=== PATIENT | male | born 1995 | race Caucasian/White ===

== ENCOUNTER 2020-08-14 15:43 | Inpatient (IN) | payer MEDICAID ==
[~2020-08-14] VITALS: Ht 182.9 cm; Wt 169.7 kg
[2020-08-14] MEDS ORDERED: HYDROmorphone 1 MG/ML, 1ML INJ IV ONE ×2 (17:30→18:30)
[2020-08-14] MEDS ORDERED: SODIUM CHLORIDE FLUSH 10ML SYR IVF ONE (17:30)
[2020-08-14] MEDS ORDERED: HYDROmorphone 1 MG/ML, 1ML INJ ONE ×2 (17:48→18:31)
--- NOTE | 2020-08-14 18:26 | NUR ---
task rn:mri called and stated"pt is moving a lot due to pain. pt needs pain meds for mri" edmd notified.
[2020-08-14] MEDS ORDERED: DIAZEPAM 5 MG/ML, 2ML IV ONE (18:30)
[2020-08-14] MEDS ORDERED: DIAZEPAM 5 MG/ML, 2ML ONE (18:31)
--- NOTE | 2020-08-14 18:41 | NUR ---
pt medicated per emar for pain in mri. pt tolerated well.
--- NOTE | 2020-08-14 18:56 | NUR ---
PT UNABLE TO TOLERATE MRI. DR. AMAYA AWARE.
[2020-08-14] MEDS ORDERED: METF500T17 PO (20:37)
[2020-08-14] MEDS ORDERED: ONDANSETRON ODT 4 MG PO PRN (21:00)
[2020-08-14] MEDS: SODIUM CHLORIDE 0.9% 1,000 ML IV SCH (21:00)
[2020-08-14] MEDS ORDERED: ONDANSETRON 2MG/ML, 2ML IVPush PRN (21:00)
[2020-08-14] MEDS ORDERED: PROMETHAZINE 25 MG/ML, 1ML IM PRN (21:00)
[2020-08-14] MEDS ORDERED: hydrALAzine 20 MG/ML, 1ML IVPush PRN (21:00)
[2020-08-14 21:11] VITALS: BP 123/76
[2020-08-14] MEDS ORDERED: MEDROL 4MG DOSEPAK PO SCH (21:30)
[2020-08-14] MEDS: GABAPENTIN 100 MG CAPSULE PO SCH (22:15)
[2020-08-14] MEDS: ENOXAPARIN 30 MG/0.3 ML SQ SCH (22:15)
[2020-08-14] MEDS: OXYcodone IR 5MG TABLET PO PRN (22:16)
[2020-08-14] MEDS: NICOTINE 21 MG/24 HR PATCH.TD24 TD SCH (23:14)
[2020-08-15 00:57] VITALS: BP 133/77
[2020-08-15] MEDS: OXYcodone IR 5MG TABLET PO PRN ×4 (04:38→23:40)
[2020-08-15 05:12] LABS: BASOPHILS % (AUTO) 0 % (0-1); EOSINOPHILS % (AUTO) 0 % (1-7); LYMPHOCYTES % (AUTO) 14 % (22-44); MEAN PLATELET VOLUME 7.8 fL (7.4-10.4); MONOCYTES % (AUTO) 5 % (2-9); NEUTROPHILS % (AUTO) 81 % (42-75); PLATELET COUNT 262 x10^3/uL (130-400); RED BLOOD COUNT 5.17 x10^6/uL (4.38-5.82)
[2020-08-15 05:15] LABS: MD NO
[2020-08-15 05:35] LABS: CHLORIDE 105 mmol/L (98-107)
[2020-08-15 05:47] LABS: ALANINE AMINOTRANSFERASE 57 U/L (12-78); ALBUMIN 3.8 g/dL (3.4-5.0); ALKALINE PHOSPHATASE 80 U/L (45-117); ANION GAP 9 mmol/L (5-15); BILIRUBIN,TOTAL 0.6 mg/dL (0.2-1.0); CALCIUM 8.8 mg/dL (8.5-10.1); CHOL/HDL RATIO 5.2; CHOLESTEROL, TOTAL 145 mg/dL (140-239); CREATININE 0.65 mg/dL (0.7-1.3); HDL CHOL % 19 % (26-37); HDL CHOLESTEROL (DIRECT) 28 mg/dL (40-60); LDL CHOLESTEROL,CALCULATED 61 mg/dL (54-169); LDL/HDL RATIO 2.2 (0.5-3.0); TOTAL PROTEIN 7.6 g/dL (6.4-8.2); TRIGLYCERIDES 281 mg/dL (50-200); VLDL CHOLESTEROL 56 mg/dL (0-25)
[2020-08-15 07:30] VITALS: BP 140/86
[2020-08-15] MEDS: GABAPENTIN 100 MG CAPSULE PO SCH ×3 (07:51→20:05)
[2020-08-15] MEDS: SODIUM CHLORIDE 0.9% 1,000 ML IV SCH (07:52)
[2020-08-15] MEDS: ENOXAPARIN 30 MG/0.3 ML SQ SCH (07:52)
[2020-08-15] MEDS: METHOCARBAMOL 500 MG TABLET PO PRN (07:59)
[2020-08-15] MEDS: INSULIN LISPRO 100 UNITS/ML, PEN SQ-INSULIN SCH ×4 (08:00→20:06)
[2020-08-15] MEDS: SENNA/DOCUSATE TABLET PO SCH (08:45)
[2020-08-15] MEDS: ACETAMINOPHEN 325 MG TABLET PO PRN (11:41)
[2020-08-15 12:36] VITALS: BP 141/89
[2020-08-15] MEDS ORDERED: ONDANSETRON 2MG/ML, 2ML ONE (13:10)
[2020-08-15] MEDS ORDERED: PROPOFOL 10 MG/ML, 20ML ONE (13:10)
[2020-08-15] MEDS ORDERED: SUCCINYLCHOLINE 20 MG/ML, 10ML ONE (13:10)
[2020-08-15] MEDS ORDERED: FENTANYL PF 250 MCG/5ML ONE ×2 (13:25→15:27)
[2020-08-15] MEDS ORDERED: GADOTERATE 7.5 MMOL/15ML SYR ONE (15:34)
[2020-08-15] MEDS ORDERED: OXYcodone 5 MG/5 ML ORAL.SOL UDC PO PRN (17:00)
[2020-08-15] MEDS ORDERED: MEPERIDINE/PF 25MG/0.5ML IVPush PRN (17:00)
[2020-08-15] MEDS ORDERED: LABETALOL 5MG/ML, 20ML IV PRN (17:00)
[2020-08-15] MEDS ORDERED: FENTANYL PF 100 MCG/2ML IV PRN (17:00)
[2020-08-15] MEDS ORDERED: KETOROLAC 30 MG/1 ML IV PRN (17:00)
[2020-08-15] MEDS ORDERED: ACETAMINOPHEN 325 MG TABLET PO PRN (17:00)
[2020-08-15] MEDS ORDERED: HYDROmorphone 2 MG/ML, 1ML IVPush PRN (17:00)
[2020-08-15] MEDS ORDERED: DIAZEPAM 5 MG/ML, 2ML IVPush PRN (17:00)
[2020-08-15] MEDS ORDERED: PROMETHAZINE 25 MG/ML, 1ML IV PRN (17:00)
[2020-08-15] MEDS ORDERED: hydrALAzine 20 MG/ML, 1ML IV PRN (17:00)
[2020-08-15] MEDS ORDERED: ALBUTEROL SULFATE 2.5 MG/3 ML NPPB PRN (17:00)
[2020-08-15 17:35] VITALS: BP 124/74
[2020-08-15 19:04] VITALS: BP 143/90
[2020-08-15] MEDS: NICOTINE 21 MG/24 HR PATCH.TD24 TD SCH (23:39)
[2020-08-16 00:54] VITALS: BP 143/92
[2020-08-16 05:49] LABS: BASOPHILS % (AUTO) 1 % (0-1); EOSINOPHILS % (AUTO) 0 % (1-7); LYMPHOCYTES % (AUTO) 17 % (22-44); MEAN CORPUSCULAR HEMOGLOBIN 30.7 pg (27.5-34.5); MEAN CORPUSCULAR HGB CONC 33.7 g/dL (33.2-36.2); MONOCYTES % (AUTO) 6 % (2-9); NEUTROPHILS % (AUTO) 77 % (42-75); PLATELET COUNT 279 x10^3/uL (130-400); RED BLOOD COUNT 5.08 x10^6/uL (4.38-5.82); RED CELL DISTRIBUTION WIDTH 12.9 % (9.4-14.8)
[2020-08-16 05:55] LABS: ALANINE AMINOTRANSFERASE 71 U/L (12-78); ALBUMIN 3.5 g/dL (3.4-5.0); ANION GAP 5 mmol/L (5-15); CALCIUM 8.7 mg/dL (8.5-10.1); CHLORIDE 105 mmol/L (98-107); CREATININE 0.78 mg/dL (0.7-1.3)
[2020-08-16 05:57] LABS: ALKALINE PHOSPHATASE 78 U/L (45-117); BILIRUBIN,TOTAL 0.6 mg/dL (0.2-1.0); TOTAL PROTEIN 7.2 g/dL (6.4-8.2)
[2020-08-16 06:17] VITALS: BP 109/74
[2020-08-16 06:26] LABS: MD SCAN
[2020-08-16] MEDS: INSULIN LISPRO 100 UNITS/ML, PEN SQ-INSULIN SCH ×4 (07:00→22:30)
[2020-08-16] MEDS ORDERED: CHLORHEXIDINE 15 ML UDC ONE (07:01)
[2020-08-16] MEDS ORDERED: THROMBIN 5,000 UNIT VIAL TP ONE ×2 (07:19→09:42)
[2020-08-16] MEDS ORDERED: BACITRACIN OINT 500U/GM, 15 GM ONE (07:19)
[2020-08-16] MEDS ORDERED: methylPREDNISolone *ACETATE* 40 MG/ML ONE (07:19)
[2020-08-16] MEDS ORDERED: EPINEPHRINE 1 MG/ML, 1ML ONE (07:19)
[2020-08-16] MEDS ORDERED: BUPIVACAINE/PF 0.5% ONE (07:19)
[2020-08-16] MEDS ORDERED: BACITRACIN 50,000 UNIT ONE ×2 (07:20→10:16)
[2020-08-16] MEDS: SENNA/DOCUSATE TABLET PO SCH (07:26)
[2020-08-16] MEDS: GABAPENTIN 100 MG CAPSULE PO SCH ×3 (07:26→22:30)
[2020-08-16] MEDS ORDERED: CHLORHEXIDINE 15 ML UDC PO ONE (07:30)
[2020-08-16] MEDS ORDERED: FENTANYL PF 250 MCG/5ML ONE ×3 (07:31→10:52)
[2020-08-16] MEDS ORDERED: MIDAZOLAM 1 MG/ML, 2ML ONE (07:31)
[2020-08-16] MEDS ORDERED: KETAMINE 10 MG/ML, 20ML ONE (07:37)
[2020-08-16] MEDS ORDERED: PROPOFOL 150 ML ONE ×2 (07:38→09:50)
[2020-08-16] MEDS ORDERED: INSULIN REGULAR 100 UNITS/ML, 3ML VIAL SQ-INSULIN PRN (08:30)
[2020-08-16] MEDS: CYCLOBENZAPRINE 10 MG TABLET PO SCH ×2 (08:30→16:53)
[2020-08-16] MEDS ORDERED: DIPHENHYDRAMINE 50 MG/ML, 1ML IVPush PRN (08:30)
[2020-08-16] MEDS ORDERED: MAGNESIUM HYDROXIDE 8%, 30ML UDC PO PRN (08:30)
[2020-08-16] MEDS ORDERED: PHARMACY MAY ADJ FOR RENAL FX MC PRN (08:30)
[2020-08-16] MEDS ORDERED: BUPIVACAINE/PF-EPI 0.5% 1:200K INFIL ONE (08:52)
[2020-08-16] MEDS ORDERED: BACITRACIN 50,000 UNIT IRRIG ONE ×2 (08:52→10:19)
[2020-08-16] MEDS ORDERED: HYDROmorphone 1 MG/ML, 1ML INJ ONE ×3 (09:19→13:44)
[2020-08-16] MEDS ORDERED: FENTANYL PF 100 MCG/2ML IV PRN (10:00)
[2020-08-16] MEDS ORDERED: LORazepam 2 MG/ML, 1ML IVPush PRN (10:00)
[2020-08-16] MEDS ORDERED: ACETAMINOPHEN 325 MG TABLET PO PRN (10:00)
[2020-08-16] MEDS ORDERED: hydrALAzine 20 MG/ML, 1ML IV PRN (10:00)
[2020-08-16] MEDS ORDERED: ONDANSETRON 2MG/ML, 2ML IVPush PRN (10:00)
[2020-08-16] MEDS ORDERED: HALOPERIDOL 5 MG/ML IV PRN (10:00)
[2020-08-16] MEDS ORDERED: MEPERIDINE/PF 25MG/0.5ML IVPush PRN (10:00)
[2020-08-16] MEDS ORDERED: LABETALOL 5MG/ML, 20ML IV PRN (10:00)
[2020-08-16] MEDS ORDERED: PROMETHAZINE 25 MG/ML, 1ML IVPush PRN (10:00)
[2020-08-16] MEDS ORDERED: OXYcodone 5 MG/5 ML ORAL.SOL UDC PO PRN (10:00)
[2020-08-16] MEDS ORDERED: METHOCARBAMOL 1,000 MG in DEXTROSE 5% 100 ML IV PRN (10:00)
[2020-08-16] MEDS ORDERED: PROMETHAZINE 25 MG SUPP PR PRN (10:00)
[2020-08-16] MEDS ORDERED: NEOSTIGMINE 1 MG/ML, 10ML ONE (10:51)
[2020-08-16] MEDS ORDERED: DEXAMETHASONE 4 MG/ML, 1ML ONE (10:51)
[2020-08-16] MEDS ORDERED: ROCURONIUM 10MG/ML,5ML ONE (10:51)
[2020-08-16] MEDS ORDERED: PROPOFOL 10 MG/ML, 20ML ONE (10:51)
[2020-08-16] MEDS ORDERED: SUCCINYLCHOLINE 20 MG/ML, 10ML ONE (10:51)
[2020-08-16] MEDS ORDERED: ONDANSETRON 2MG/ML, 2ML ONE (10:51)
[2020-08-16] MEDS ORDERED: CEFAZOLIN 1,000 MG ONE (10:51)
[2020-08-16] MEDS ORDERED: GLYCOPYRROLATE 0.2MG/1ML, 5ML ONE (10:51)
[2020-08-16] MEDS ORDERED: FENTANYL PF 100 MCG/2ML ONE (12:30)
[2020-08-16] MEDS ORDERED: LABETALOL 5MG/ML, 20ML ONE (13:32)
[2020-08-16] MEDS ORDERED: hydrALAzine 20 MG/ML, 1ML ONE (13:44)
[2020-08-16] MEDS ORDERED: OXYcodone 5 MG/5 ML ORAL.SOL UDC ONE (13:45)
[2020-08-16] MEDS: HYDROmorphone 1 MG/ML, 1ML INJ IVPush PRN ×2 (13:53→13:58)
[2020-08-16] MEDS: CEFAZOLIN PMX 1GM/50ML 50 ML IVPB SCH (16:53)
[2020-08-16 19:03] VITALS: BP 124/73
[2020-08-16 19:06] VITALS: BP 118/89
[2020-08-16] MEDS ORDERED: SODIUM CHLORIDE 0.9%, 500ML IVBOLUS ONE (23:30)
[2020-08-16] MEDS: NICOTINE 21 MG/24 HR PATCH.TD24 TD SCH (23:30)
[2020-08-17 00:02] VITALS: BP 122/64
[2020-08-17] MEDS: CEFAZOLIN PMX 1GM/50ML 50 ML IVPB SCH (00:47)
[2020-08-17] MEDS: CYCLOBENZAPRINE 10 MG TABLET PO SCH ×3 (00:47→16:52)
[2020-08-17 03:19] VITALS: BP 128/77
[2020-08-17] MEDS: ACETAMINOPHEN 325 MG TABLET PO PRN ×2 (03:46→21:52)
[2020-08-17] MEDS ORDERED: INSULIN LISPRO 100 UNITS/ML, PEN SQ-INSULIN ONE (04:00)
[2020-08-17 05:15] VITALS: BP 127/82
[2020-08-17 05:26] LABS: BASOPHILS % (AUTO) 1 % (0-1); EOSINOPHILS % (AUTO) 0 % (1-7); LYMPHOCYTES % (AUTO) 20 % (22-44); MEAN CORPUSCULAR HEMOGLOBIN 30.6 pg (27.5-34.5); MEAN CORPUSCULAR HGB CONC 33.9 g/dL (33.2-36.2); MEAN PLATELET VOLUME 7.7 fL (7.4-10.4); MONOCYTES % (AUTO) 10 % (2-9); NEUTROPHILS % (AUTO) 69 % (42-75); PLATELET COUNT 233 x10^3/uL (130-400); RED BLOOD COUNT 4.26 x10^6/uL (4.38-5.82)
[2020-08-17 05:41] LABS: MD NO
[2020-08-17 05:52] LABS: CALCIUM 8.2 mg/dL (8.5-10.1); CHLORIDE 103 mmol/L (98-107)
[2020-08-17 05:56] LABS: ANION GAP 6 mmol/L (5-15); CREATININE 0.74 mg/dL (0.7-1.3)
[2020-08-17 07:26] VITALS: BP 127/83
[2020-08-17] MEDS: GABAPENTIN 100 MG CAPSULE PO SCH ×3 (08:56→21:52)
[2020-08-17] MEDS: SENNA/DOCUSATE TABLET PO SCH (08:56)
[2020-08-17] MEDS: INSULIN LISPRO 100 UNITS/ML, PEN SQ-INSULIN SCH ×4 (08:57→21:55)
[2020-08-17 12:36] VITALS: BP 124/77
[2020-08-17 19:58] VITALS: BP 146/77
[2020-08-18] MEDS: NICOTINE 21 MG/24 HR PATCH.TD24 TD SCH ×2 (00:04→23:31)
[2020-08-18] MEDS: CYCLOBENZAPRINE 10 MG TABLET PO SCH ×4 (00:04→23:31)
[2020-08-18 01:11] VITALS: BP 129/77
[2020-08-18] MEDS: ACETAMINOPHEN 325 MG TABLET PO PRN (02:48)
[2020-08-18 06:00] LABS: CHLORIDE 100 mmol/L (98-107)
[2020-08-18 06:02] LABS: BASOPHILS % (AUTO) 0 % (0-1); EOSINOPHILS % (AUTO) 0 % (1-7); LYMPHOCYTES % (AUTO) 11 % (22-44); MEAN CORPUSCULAR HEMOGLOBIN 30.2 pg (27.5-34.5); MEAN CORPUSCULAR HGB CONC 33.8 g/dL (33.2-36.2); MEAN PLATELET VOLUME 7.8 fL (7.4-10.4); MONOCYTES % (AUTO) 12 % (2-9); NEUTROPHILS % (AUTO) 76 % (42-75); PLATELET COUNT 220 x10^3/uL (130-400); RED BLOOD COUNT 4.33 x10^6/uL (4.38-5.82); RED CELL DISTRIBUTION WIDTH 12.9 % (9.4-14.8)
[2020-08-18 06:08] LABS: ALANINE AMINOTRANSFERASE 72 U/L (12-78); ALBUMIN 2.9 g/dL (3.4-5.0); ALKALINE PHOSPHATASE 61 U/L (45-117); ANION GAP 5 mmol/L (5-15); BILIRUBIN,TOTAL 1.2 mg/dL (0.2-1.0); CALCIUM 8.5 mg/dL (8.5-10.1); CREATININE 0.59 mg/dL (0.7-1.3); TOTAL PROTEIN 6.7 g/dL (6.4-8.2)
[2020-08-18 07:09] LABS: MD SCAN
[2020-08-18] MEDS: INSULIN LISPRO 100 UNITS/ML, PEN SQ-INSULIN SCH ×4 (08:03→20:57)
[2020-08-18] MEDS: CEFAZOLIN 2,000 MG in SODIUM CHLORIDE 0.9% 50 ML IV SCH ×3 (08:04→23:30)
[2020-08-18] MEDS: SENNA/DOCUSATE TABLET PO SCH (08:05)
[2020-08-18] MEDS: GABAPENTIN 100 MG CAPSULE PO SCH ×3 (08:05→20:56)
[2020-08-18] MEDS ORDERED: metFORMIN 500 MG TABLET PO SCH (09:00)
[2020-08-18 09:57] VITALS: BP 121/84
[2020-08-18 14:23] VITALS: BP 151/88
[2020-08-18 20:08] VITALS: BP 131/82
[2020-08-19 01:20] VITALS: BP 138/81
[2020-08-19 07:06] LABS: ANION GAP 11 mmol/L (5-15); CALCIUM 9.4 mg/dL (8.5-10.1); CHLORIDE 100 mmol/L (98-107); CREATININE 0.51 mg/dL (0.7-1.3)
[2020-08-19 07:12] LABS: BASOPHILS % (AUTO) 1 % (0-1); EOSINOPHILS % (AUTO) 1 % (1-7); LYMPHOCYTES % (AUTO) 10 % (22-44); MEAN CORPUSCULAR HEMOGLOBIN 30.4 pg (27.5-34.5); MEAN CORPUSCULAR HGB CONC 33.5 g/dL (33.2-36.2); MEAN PLATELET VOLUME 7.5 fL (7.4-10.4); MONOCYTES % (AUTO) 9 % (2-9); NEUTROPHILS % (AUTO) 80 % (42-75); PLATELET COUNT 254 x10^3/uL (130-400); RED BLOOD COUNT 4.45 x10^6/uL (4.38-5.82); RED CELL DISTRIBUTION WIDTH 12.6 % (9.4-14.8)
[2020-08-19 07:18] VITALS: BP 142/80
[2020-08-19 07:19] LABS: MD NO
[2020-08-19] MEDS: CEFAZOLIN 2,000 MG in SODIUM CHLORIDE 0.9% 50 ML IV SCH (08:13)
[2020-08-19] MEDS: CYCLOBENZAPRINE 10 MG TABLET PO SCH ×2 (08:14→17:12)
[2020-08-19] MEDS: SENNA/DOCUSATE TABLET PO SCH (08:14)
[2020-08-19] MEDS: INSULIN LISPRO 100 UNITS/ML, PEN SQ-INSULIN SCH ×4 (08:14→22:00)
[2020-08-19] MEDS: GABAPENTIN 100 MG CAPSULE PO SCH ×3 (08:15→20:45)
[2020-08-19] MEDS ORDERED: DIAZEPAM 5 MG/ML, 2ML IVPush ONE (10:00)
[2020-08-19] MEDS: MORPHINE SULFATE 4 MG/ML, 1ML IVPush PRN ×2 (11:36→13:36)
[2020-08-19] MEDS: OXYcodone IR 5MG TABLET PO PRN ×2 (13:35→19:20)
[2020-08-19 14:00] VITALS: BP 139/85
[2020-08-19 18:43] VITALS: BP 132/83
[2020-08-19] MEDS ORDERED: INSULIN GLARGINE 100 UNITS/ML, PEN SQ-INSULIN SCH (21:00)
[2020-08-20] MEDS: NICOTINE 21 MG/24 HR PATCH.TD24 TD SCH ×2 (00:26→23:37)
[2020-08-20] MEDS: CYCLOBENZAPRINE 10 MG TABLET PO SCH ×3 (00:26→17:02)
[2020-08-20] MEDS: OXYcodone IR 5MG TABLET PO PRN ×4 (00:27→19:52)
[2020-08-20 01:20] VITALS: BP 121/75
[2020-08-20 03:50] LABS: MICROSCOPIC INDICATED
[2020-08-20 05:41] LABS: BASOPHILS % (AUTO) 1 % (0-1); EOSINOPHILS % (AUTO) 2 % (1-7); LYMPHOCYTES % (AUTO) 14 % (22-44); MEAN CORPUSCULAR HEMOGLOBIN 30.6 pg (27.5-34.5); MEAN CORPUSCULAR HGB CONC 33.8 g/dL (33.2-36.2); MEAN PLATELET VOLUME 7.8 fL (7.4-10.4); MONOCYTES % (AUTO) 10 % (2-9); NEUTROPHILS % (AUTO) 74 % (42-75); PLATELET COUNT 285 x10^3/uL (130-400); RED BLOOD COUNT 4.18 x10^6/uL (4.38-5.82); RED CELL DISTRIBUTION WIDTH 12.9 % (9.4-14.8)
[2020-08-20 05:49] LABS: ANION GAP 8 mmol/L (5-15); CALCIUM 9.1 mg/dL (8.5-10.1); CHLORIDE 100 mmol/L (98-107); CREATININE 0.52 mg/dL (0.7-1.3)
[2020-08-20 05:52] LABS: MD NO
[2020-08-20 07:14] VITALS: BP 131/73
[2020-08-20] MEDS: SENNA/DOCUSATE TABLET PO SCH (08:38)
[2020-08-20] MEDS: GABAPENTIN 100 MG CAPSULE PO SCH ×3 (08:38→21:47)
[2020-08-20] MEDS: INSULIN LISPRO 100 UNITS/ML, PEN SQ-INSULIN SCH ×4 (08:38→21:51)
[2020-08-20 13:02] VITALS: BP 140/90
[2020-08-20] MEDS: METOCLOPRAMIDE 5 MG/ML, 2ML IVPush SCH ×2 (13:37→17:01)
[2020-08-20 15:28] VITALS: BP 134/81
[2020-08-20] MEDS: MORPHINE SULFATE 4 MG/ML, 1ML IVPush PRN ×2 (17:00→21:46)
[2020-08-20] MEDS: BISACODYL 10 MG SUPP PR PRN (17:02)
[2020-08-20] MEDS: POLYETHYLENE GLYCOL 17 GM PACKET PO SCH ×2 (17:02→21:47)
[2020-08-20 19:21] VITALS: BP 122/74
[2020-08-20] MEDS: SENNOSIDES 8.6 MG TABLET PO SCH (21:47)
[2020-08-20] MEDS: INSULIN GLARGINE 100 UNITS/ML, PEN SQ-INSULIN SCH (21:51)
[2020-08-21] MEDS: OXYcodone IR 5MG TABLET PO PRN ×5 (00:12→19:33)
[2020-08-21] MEDS: CYCLOBENZAPRINE 10 MG TABLET PO SCH ×3 (01:24→15:15)
[2020-08-21] MEDS: METOCLOPRAMIDE 5 MG/ML, 2ML IVPush SCH ×4 (01:24→22:00)
[2020-08-21 02:05] VITALS: BP 118/83
[2020-08-21 06:10] LABS: BASOPHILS % (AUTO) 1 % (0-1); EOSINOPHILS % (AUTO) 2 % (1-7); LYMPHOCYTES % (AUTO) 18 % (22-44); MEAN CORPUSCULAR HEMOGLOBIN 30.4 pg (27.5-34.5); MEAN CORPUSCULAR HGB CONC 34.1 g/dL (33.2-36.2); MEAN PLATELET VOLUME 7.5 fL (7.4-10.4); MONOCYTES % (AUTO) 10 % (2-9); NEUTROPHILS % (AUTO) 69 % (42-75); PLATELET COUNT 308 x10^3/uL (130-400); RED BLOOD COUNT 4.12 x10^6/uL (4.38-5.82); RED CELL DISTRIBUTION WIDTH 12.7 % (9.4-14.8)
[2020-08-21 06:19] LABS: ANION GAP 8 mmol/L (5-15); CALCIUM 8.7 mg/dL (8.5-10.1); CHLORIDE 95 mmol/L (98-107); MD NO
[2020-08-21 06:20] LABS: CREATININE 0.57 mg/dL (0.7-1.3)
[2020-08-21] MEDS: POLYETHYLENE GLYCOL 17 GM PACKET PO SCH (07:30)
[2020-08-21] MEDS: INSULIN LISPRO 100 UNITS/ML, PEN SQ-INSULIN SCH ×4 (07:31→22:26)
[2020-08-21] MEDS: INSULIN GLARGINE 100 UNITS/ML, PEN SQ-INSULIN SCH ×2 (07:31→22:25)
[2020-08-21] MEDS: SENNOSIDES 8.6 MG TABLET PO SCH ×2 (07:31→22:01)
[2020-08-21] MEDS: GABAPENTIN 100 MG CAPSULE PO SCH ×3 (07:32→22:01)
[2020-08-21 07:55] VITALS: BP 123/77
[2020-08-21] MEDS ORDERED: DIAZEPAM 5 MG/ML, 2ML IV ONE (13:00)
[2020-08-21 13:50] VITALS: BP 140/90
[2020-08-21] MEDS: metFORMIN 850 MG TABLET PO SCH (16:44)
[2020-08-21] MEDS: MORPHINE SULFATE 4 MG/ML, 1ML IVPush PRN ×3 (17:03→18:39)
[2020-08-21] MEDS ORDERED: DIAZEPAM 5 MG/ML, 2ML IV PRN (18:00)
[2020-08-21 19:24] VITALS: BP 106/75
[2020-08-22] MEDS: CYCLOBENZAPRINE 10 MG TABLET PO SCH ×3 (00:48→15:40)
[2020-08-22] MEDS: NICOTINE 21 MG/24 HR PATCH.TD24 TD SCH ×2 (00:48→22:36)
[2020-08-22] MEDS: OXYcodone IR 5MG TABLET PO PRN ×5 (00:49→23:29)
[2020-08-22 01:00] VITALS: BP 119/70
[2020-08-22] MEDS: METOCLOPRAMIDE 5 MG/ML, 2ML IVPush SCH ×5 (03:42→20:43)
[2020-08-22 05:05] LABS: BASOPHILS % (AUTO) 1 % (0-1); EOSINOPHILS % (AUTO) 2 % (1-7); LYMPHOCYTES % (AUTO) 22 % (22-44); MEAN CORPUSCULAR HEMOGLOBIN 30.4 pg (27.5-34.5); MEAN CORPUSCULAR HGB CONC 34.4 g/dL (33.2-36.2); MEAN PLATELET VOLUME 7.1 fL (7.4-10.4); MONOCYTES % (AUTO) 9 % (2-9); NEUTROPHILS % (AUTO) 66 % (42-75); PLATELET COUNT 307 x10^3/uL (130-400); RED BLOOD COUNT 4.24 x10^6/uL (4.38-5.82); RED CELL DISTRIBUTION WIDTH 12.9 % (9.4-14.8)
[2020-08-22 05:08] LABS: MD NO
[2020-08-22] MEDS: INSULIN LISPRO 100 UNITS/ML, PEN SQ-INSULIN SCH ×4 (07:48→20:43)
[2020-08-22] MEDS: SENNOSIDES 8.6 MG TABLET PO SCH ×2 (07:49→20:43)
[2020-08-22] MEDS: metFORMIN 850 MG TABLET PO SCH ×2 (07:49→15:37)
[2020-08-22] MEDS: INSULIN GLARGINE 100 UNITS/ML, PEN SQ-INSULIN SCH ×2 (07:49→20:44)
[2020-08-22] MEDS: GABAPENTIN 100 MG CAPSULE PO SCH ×3 (07:49→20:43)
[2020-08-22 08:01] VITALS: BP 124/78
[2020-08-22] MEDS: PIPERACILLIN/TAZO/PMX 4.5GM 100 ML IV SCH ×3 (10:51→22:36)
[2020-08-22 13:55] VITALS: BP 139/79
[2020-08-22] MEDS: METHOCARBAMOL 500 MG TABLET PO PRN ×2 (15:41→23:29)
[2020-08-22] MEDS: POLYETHYLENE GLYCOL 17 GM PACKET PO PRN (15:41)
[2020-08-22 19:24] VITALS: BP_SYST 120
[2020-08-22] MEDS: ACETAMINOPHEN 325 MG TABLET PO PRN (19:32)
[2020-08-22] MEDS: LORazepam 1MG TABLET PO PRN (20:43)
[2020-08-23 00:02] VITALS: BP 109/79
[2020-08-23] MEDS: CYCLOBENZAPRINE 10 MG TABLET PO SCH ×3 (03:18→20:22)
[2020-08-23] MEDS: METOCLOPRAMIDE 5 MG/ML, 2ML IVPush SCH ×4 (03:18→20:22)
[2020-08-23] MEDS: OXYcodone IR 5MG TABLET PO PRN ×5 (03:19→20:21)
[2020-08-23] MEDS: PIPERACILLIN/TAZO/PMX 4.5GM 100 ML IV SCH ×4 (04:23→22:39)
[2020-08-23 05:24] LABS: BASOPHILS % (AUTO) 1 % (0-1); EOSINOPHILS % (AUTO) 2 % (1-7); LYMPHOCYTES % (AUTO) 22 % (22-44); MEAN CORPUSCULAR HEMOGLOBIN 30.5 pg (27.5-34.5); MEAN CORPUSCULAR HGB CONC 34.3 g/dL (33.2-36.2); MEAN PLATELET VOLUME 7.7 fL (7.4-10.4); MONOCYTES % (AUTO) 11 % (2-9); NEUTROPHILS % (AUTO) 64 % (42-75); PLATELET COUNT 320 x10^3/uL (130-400); RED BLOOD COUNT 4.22 x10^6/uL (4.38-5.82); RED CELL DISTRIBUTION WIDTH 12.8 % (9.4-14.8)
[2020-08-23 05:26] LABS: MD NO
[2020-08-23 06:15] VITALS: BP 104/73
[2020-08-23] MEDS: metFORMIN 850 MG TABLET PO SCH ×3 (07:35→18:34)
[2020-08-23] MEDS: INSULIN LISPRO 100 UNITS/ML, PEN SQ-INSULIN SCH ×4 (07:36→20:44)
[2020-08-23] MEDS: SENNOSIDES 8.6 MG TABLET PO SCH ×2 (09:22→20:21)
[2020-08-23] MEDS: GABAPENTIN 100 MG CAPSULE PO SCH ×3 (09:22→20:22)
[2020-08-23] MEDS: INSULIN GLARGINE 100 UNITS/ML, PEN SQ-INSULIN SCH ×2 (09:23→20:44)
[2020-08-23 14:10] VITALS: BP 129/84
[2020-08-23 19:10] VITALS: BP 100/68
[2020-08-23] MEDS: NICOTINE 21 MG/24 HR PATCH.TD24 TD SCH (22:39)
[2020-08-24] MEDS: OXYcodone IR 5MG TABLET PO PRN ×5 (00:05→21:44)
[2020-08-24 01:07] VITALS: BP 126/76
[2020-08-24] MEDS: METOCLOPRAMIDE 5 MG/ML, 2ML IVPush SCH ×4 (03:05→21:00)
[2020-08-24] MEDS: CYCLOBENZAPRINE 10 MG TABLET PO SCH ×3 (03:47→21:57)
[2020-08-24] MEDS: PIPERACILLIN/TAZO/PMX 4.5GM 100 ML IV SCH ×4 (05:03→22:15)
[2020-08-24 06:01] LABS: BASOPHILS % (AUTO) 1 % (0-1); EOSINOPHILS % (AUTO) 2 % (1-7); LYMPHOCYTES % (AUTO) 27 % (22-44); MEAN CORPUSCULAR HEMOGLOBIN 30.3 pg (27.5-34.5); MEAN CORPUSCULAR HGB CONC 33.6 g/dL (33.2-36.2); MEAN PLATELET VOLUME 7.5 fL (7.4-10.4); MONOCYTES % (AUTO) 9 % (2-9); NEUTROPHILS % (AUTO) 61 % (42-75); PLATELET COUNT 341 x10^3/uL (130-400); RED BLOOD COUNT 4.14 x10^6/uL (4.38-5.82); RED CELL DISTRIBUTION WIDTH 12.6 % (9.4-14.8)
[2020-08-24 06:05] LABS: MD NO
[2020-08-24 06:09] LABS: ALANINE AMINOTRANSFERASE 41 U/L (12-78); ALBUMIN 2.2 g/dL (3.4-5.0); ANION GAP 4 mmol/L (5-15); CALCIUM 8.4 mg/dL (8.5-10.1); CHLORIDE 102 mmol/L (98-107); CREATININE 0.46 mg/dL (0.7-1.3)
[2020-08-24 06:10] LABS: ALKALINE PHOSPHATASE 69 U/L (45-117); BILIRUBIN,TOTAL 0.4 mg/dL (0.2-1.0); TOTAL PROTEIN 6.3 g/dL (6.4-8.2)
[2020-08-24 07:44] VITALS: BP 142/76
[2020-08-24] MEDS: SENNOSIDES 8.6 MG TABLET PO SCH ×2 (08:35→21:54)
[2020-08-24] MEDS: metFORMIN 850 MG TABLET PO SCH ×3 (08:35→16:46)
[2020-08-24] MEDS: GABAPENTIN 100 MG CAPSULE PO SCH ×3 (08:35→21:43)
[2020-08-24] MEDS: POLYETHYLENE GLYCOL 17 GM PACKET PO PRN (08:36)
[2020-08-24] MEDS: INSULIN GLARGINE 100 UNITS/ML, PEN SQ-INSULIN SCH ×2 (08:37→23:20)
[2020-08-24] MEDS: INSULIN LISPRO 100 UNITS/ML, PEN SQ-INSULIN SCH ×4 (08:39→23:20)
[2020-08-24 19:14] VITALS: BP 121/78
[2020-08-24] MEDS: NICOTINE 21 MG/24 HR PATCH.TD24 TD SCH (21:58)
[2020-08-25 00:29] VITALS: BP 119/76
[2020-08-25] MEDS: OXYcodone IR 5MG TABLET PO PRN ×5 (02:42→21:49)
[2020-08-25] MEDS: METOCLOPRAMIDE 5 MG/ML, 2ML IVPush SCH ×4 (03:00→21:50)
[2020-08-25] MEDS: METHOCARBAMOL 500 MG TABLET PO PRN ×2 (05:09→17:02)
[2020-08-25] MEDS: PIPERACILLIN/TAZO/PMX 4.5GM 100 ML IV SCH (05:09)
[2020-08-25 06:45] LABS: BASOPHILS % (AUTO) 1 % (0-1); EOSINOPHILS % (AUTO) 2 % (1-7); LYMPHOCYTES % (AUTO) 31 % (22-44); MEAN CORPUSCULAR HEMOGLOBIN 30.3 pg (27.5-34.5); MEAN CORPUSCULAR HGB CONC 33.5 g/dL (33.2-36.2); MEAN PLATELET VOLUME 7.4 fL (7.4-10.4); MONOCYTES % (AUTO) 8 % (2-9); NEUTROPHILS % (AUTO) 58 % (42-75); PLATELET COUNT 348 x10^3/uL (130-400); RED BLOOD COUNT 4.04 x10^6/uL (4.38-5.82); RED CELL DISTRIBUTION WIDTH 12.9 % (9.4-14.8)
[2020-08-25 06:46] LABS: MD NO
[2020-08-25] MEDS: CYCLOBENZAPRINE 10 MG TABLET PO SCH ×3 (06:49→21:48)
[2020-08-25 06:56] LABS: ANION GAP 5 mmol/L (5-15); CALCIUM 8.7 mg/dL (8.5-10.1); CHLORIDE 104 mmol/L (98-107); CREATININE 0.59 mg/dL (0.7-1.3)
[2020-08-25] MEDS: SENNOSIDES 8.6 MG TABLET PO SCH ×2 (07:54→21:49)
[2020-08-25 07:55] VITALS: BP 137/79
[2020-08-25] MEDS: GABAPENTIN 100 MG CAPSULE PO SCH ×3 (08:12→21:48)
[2020-08-25] MEDS: metFORMIN 850 MG TABLET PO SCH ×3 (08:12→16:58)
[2020-08-25] MEDS: INSULIN GLARGINE 100 UNITS/ML, PEN SQ-INSULIN SCH ×2 (08:13→22:13)
[2020-08-25] MEDS: INSULIN LISPRO 100 UNITS/ML, PEN SQ-INSULIN SCH ×4 (08:17→22:13)
[2020-08-25] MEDS: CEPHALEXIN 500 MG CAPSULE PO SCH ×2 (10:10→17:37)
[2020-08-25 14:55] VITALS: BP 132/74
[2020-08-25 19:07] VITALS: BP 113/74
[2020-08-25] MEDS: NICOTINE 21 MG/24 HR PATCH.TD24 TD SCH (21:49)
[2020-08-26] MEDS: CEPHALEXIN 500 MG CAPSULE PO SCH ×3 (01:56→16:55)
[2020-08-26 02:05] VITALS: BP 118/76
[2020-08-26] MEDS: METOCLOPRAMIDE 5 MG/ML, 2ML IVPush SCH (02:58)
[2020-08-26] MEDS: OXYcodone IR 5MG TABLET PO PRN ×5 (02:59→23:20)
[2020-08-26] MEDS: CYCLOBENZAPRINE 10 MG TABLET PO SCH ×3 (06:42→23:19)
[2020-08-26] MEDS: INSULIN LISPRO 100 UNITS/ML, PEN SQ-INSULIN SCH ×4 (07:00→21:00)
[2020-08-26 07:35] VITALS: BP 137/80
[2020-08-26] MEDS: SENNOSIDES 8.6 MG TABLET PO SCH ×2 (08:24→23:20)
[2020-08-26] MEDS: GABAPENTIN 100 MG CAPSULE PO SCH ×3 (08:24→23:19)
[2020-08-26] MEDS: metFORMIN 850 MG TABLET PO SCH ×3 (08:24→16:55)
[2020-08-26] MEDS: INSULIN GLARGINE 100 UNITS/ML, PEN SQ-INSULIN SCH (08:26)
[2020-08-26] MEDS ORDERED: METOCLOPRAMIDE 5 MG/ML, 2ML IVPush PRN (08:30)
[2020-08-26 15:49] VITALS: BP 139/79
[2020-08-26 18:02] VITALS: BP 129/65
[2020-08-26] MEDS: NICOTINE 21 MG/24 HR PATCH.TD24 TD SCH (23:20)
[2020-08-26] MEDS: ACETAMINOPHEN 325 MG TABLET PO PRN (23:20)
[2020-08-27] MEDS: INSULIN GLARGINE 100 UNITS/ML, PEN SQ-INSULIN SCH ×3 (00:09→21:51)
[2020-08-27] MEDS: CEPHALEXIN 500 MG CAPSULE PO SCH ×3 (00:40→17:01)
[2020-08-27 00:42] VITALS: BP 121/76
[2020-08-27 06:06] LABS: BASOPHILS % (AUTO) 1 % (0-1); EOSINOPHILS % (AUTO) 2 % (1-7); LYMPHOCYTES % (AUTO) 36 % (22-44); MEAN CORPUSCULAR HEMOGLOBIN 30.3 pg (27.5-34.5); MEAN PLATELET VOLUME 7.3 fL (7.4-10.4); MONOCYTES % (AUTO) 8 % (2-9); NEUTROPHILS % (AUTO) 53 % (42-75); PLATELET COUNT 411 x10^3/uL (130-400); RED BLOOD COUNT 4.31 x10^6/uL (4.38-5.82); RED CELL DISTRIBUTION WIDTH 12.8 % (9.4-14.8)
[2020-08-27 06:07] LABS: CHLORIDE 103 mmol/L (98-107)
[2020-08-27 06:11] LABS: ANION GAP 5 mmol/L (5-15); CALCIUM 9.7 mg/dL (8.5-10.1); CREATININE 0.48 mg/dL (0.7-1.3)
[2020-08-27 06:18] LABS: MD NO
[2020-08-27] MEDS: CYCLOBENZAPRINE 10 MG TABLET PO SCH ×2 (06:29→15:23)
[2020-08-27] MEDS: OXYcodone IR 5MG TABLET PO PRN ×4 (06:39→21:50)
[2020-08-27 06:50] VITALS: BP 138/83
[2020-08-27] MEDS: SENNOSIDES 8.6 MG TABLET PO SCH ×2 (08:54→21:50)
[2020-08-27] MEDS: metFORMIN 850 MG TABLET PO SCH ×3 (08:54→17:00)
[2020-08-27] MEDS: GABAPENTIN 100 MG CAPSULE PO SCH ×3 (08:54→21:50)
[2020-08-27] MEDS: INSULIN LISPRO 100 UNITS/ML, PEN SQ-INSULIN SCH ×4 (08:55→21:00)
[2020-08-27 12:02] VITALS: BP 124/89
[2020-08-27 20:34] VITALS: BP 111/72
[2020-08-28] MEDS: CYCLOBENZAPRINE 10 MG TABLET PO SCH ×3 (00:32→16:29)
[2020-08-28] MEDS: CEPHALEXIN 500 MG CAPSULE PO SCH ×3 (00:32→16:28)
[2020-08-28] MEDS: NICOTINE 21 MG/24 HR PATCH.TD24 TD SCH (00:32)
[2020-08-28 00:46] VITALS: BP 107/55
[2020-08-28 06:29] VITALS: BP 117/75
[2020-08-28] MEDS: INSULIN LISPRO 100 UNITS/ML, PEN SQ-INSULIN SCH ×4 (07:00→21:52)
[2020-08-28] MEDS: OXYcodone IR 5MG TABLET PO PRN ×3 (07:27→19:18)
[2020-08-28] MEDS: POLYETHYLENE GLYCOL 17 GM PACKET PO PRN (08:59)
[2020-08-28] MEDS: SENNOSIDES 8.6 MG TABLET PO SCH ×2 (08:59→21:53)
[2020-08-28] MEDS: GABAPENTIN 100 MG CAPSULE PO SCH ×3 (08:59→21:53)
[2020-08-28] MEDS: INSULIN GLARGINE 100 UNITS/ML, PEN SQ-INSULIN SCH ×2 (09:00→22:06)
[2020-08-28] MEDS: metFORMIN 850 MG TABLET PO SCH ×3 (09:01→16:29)
[2020-08-28 14:48] VITALS: BP 112/79
[2020-08-28 19:26] VITALS: BP 114/80
[2020-08-29] MEDS: NICOTINE 21 MG/24 HR PATCH.TD24 TD SCH (00:23)
[2020-08-29] MEDS: CYCLOBENZAPRINE 10 MG TABLET PO SCH ×3 (00:24→15:28)
[2020-08-29] MEDS: CEPHALEXIN 500 MG CAPSULE PO SCH ×3 (00:24→16:26)
[2020-08-29] MEDS: OXYcodone IR 5MG TABLET PO PRN ×4 (00:25→21:06)
[2020-08-29 01:12] VITALS: BP 109/75
[2020-08-29 06:58] VITALS: BP 127/82
[2020-08-29 07:00] LABS: BASOPHILS % (AUTO) 1 % (0-1); EOSINOPHILS % (AUTO) 2 % (1-7); LYMPHOCYTES % (AUTO) 28 % (22-44); MEAN CORPUSCULAR HEMOGLOBIN 30.4 pg (27.5-34.5); MEAN PLATELET VOLUME 7.1 fL (7.4-10.4); MONOCYTES % (AUTO) 9 % (2-9); NEUTROPHILS % (AUTO) 61 % (42-75); PLATELET COUNT 437 x10^3/uL (130-400); RED BLOOD COUNT 4.59 x10^6/uL (4.38-5.82); RED CELL DISTRIBUTION WIDTH 13.1 % (9.4-14.8)
[2020-08-29 07:01] LABS: MD NO
[2020-08-29 07:06] LABS: ANION GAP 6 mmol/L (5-15); CALCIUM 9.7 mg/dL (8.5-10.1); CHLORIDE 102 mmol/L (98-107); CREATININE 0.64 mg/dL (0.7-1.3)
[2020-08-29] MEDS: metFORMIN 850 MG TABLET PO SCH ×3 (08:00→16:26)
[2020-08-29] MEDS: INSULIN GLARGINE 100 UNITS/ML, PEN SQ-INSULIN SCH ×2 (08:01→21:06)
[2020-08-29] MEDS: SENNOSIDES 8.6 MG TABLET PO SCH ×2 (08:02→21:04)
[2020-08-29] MEDS: INSULIN LISPRO 100 UNITS/ML, PEN SQ-INSULIN SCH ×4 (08:02→21:06)
[2020-08-29] MEDS: GABAPENTIN 100 MG CAPSULE PO SCH ×3 (08:03→21:04)
[2020-08-29 14:06] VITALS: BP 123/69
[2020-08-29 18:55] VITALS: BP 117/74
[2020-08-30] MEDS: OXYcodone IR 5MG TABLET PO PRN ×4 (01:02→18:37)
[2020-08-30] MEDS: NICOTINE 21 MG/24 HR PATCH.TD24 TD SCH (01:02)
[2020-08-30] MEDS: CYCLOBENZAPRINE 10 MG TABLET PO SCH ×3 (01:02→16:23)
[2020-08-30] MEDS: CEPHALEXIN 500 MG CAPSULE PO SCH ×3 (01:03→16:23)
[2020-08-30 01:13] VITALS: BP 102/62
[2020-08-30] MEDS: INSULIN LISPRO 100 UNITS/ML, PEN SQ-INSULIN SCH ×4 (07:00→21:24)
[2020-08-30 07:22] VITALS: BP 119/79
[2020-08-30] MEDS: GABAPENTIN 100 MG CAPSULE PO SCH ×3 (08:18→21:51)
[2020-08-30] MEDS: SENNOSIDES 8.6 MG TABLET PO SCH ×2 (08:18→21:51)
[2020-08-30] MEDS: metFORMIN 850 MG TABLET PO SCH ×3 (08:18→16:23)
[2020-08-30] MEDS: INSULIN GLARGINE 100 UNITS/ML, PEN SQ-INSULIN SCH ×2 (08:20→21:52)
[2020-08-30 12:44] VITALS: BP 120/81
[2020-08-30] MEDS: METHOCARBAMOL 500 MG TABLET PO PRN (13:04)
[2020-08-30] MEDS ORDERED: OXYcodone 5 MG/5 ML ORAL.SOL UDC ONE (14:16)
[2020-08-30 19:12] VITALS: BP 123/85
[2020-08-31] MEDS: NICOTINE 21 MG/24 HR PATCH.TD24 TD SCH (00:44)
[2020-08-31] MEDS: CYCLOBENZAPRINE 10 MG TABLET PO SCH ×3 (00:44→16:38)
[2020-08-31] MEDS: CEPHALEXIN 500 MG CAPSULE PO SCH ×3 (00:44→16:38)
[2020-08-31] MEDS: OXYcodone IR 5MG TABLET PO PRN ×4 (00:45→20:38)
[2020-08-31 02:38] VITALS: BP 103/70
[2020-08-31 06:45] VITALS: BP 130/85
[2020-08-31] MEDS: INSULIN LISPRO 100 UNITS/ML, PEN SQ-INSULIN SCH ×4 (07:52→21:31)
[2020-08-31] MEDS: SENNOSIDES 8.6 MG TABLET PO SCH ×2 (08:57→20:38)
[2020-08-31] MEDS: GABAPENTIN 100 MG CAPSULE PO SCH ×3 (08:57→20:38)
[2020-08-31] MEDS: metFORMIN 850 MG TABLET PO SCH ×3 (08:57→16:38)
[2020-08-31] MEDS: INSULIN GLARGINE 100 UNITS/ML, PEN SQ-INSULIN SCH ×2 (08:58→21:39)
[2020-08-31 13:45] VITALS: BP 115/83
[2020-08-31 19:50] VITALS: BP 137/75
[2020-09-01] MEDS: OXYcodone IR 5MG TABLET PO PRN ×4 (00:49→21:23)
[2020-09-01] MEDS: CYCLOBENZAPRINE 10 MG TABLET PO SCH ×3 (00:49→16:24)
[2020-09-01] MEDS: NICOTINE 21 MG/24 HR PATCH.TD24 TD SCH (00:49)
[2020-09-01 01:51] VITALS: BP 117/79
[2020-09-01] MEDS: INSULIN LISPRO 100 UNITS/ML, PEN SQ-INSULIN SCH ×4 (06:38→21:00)
[2020-09-01 07:04] VITALS: BP 110/79
[2020-09-01] MEDS: POLYETHYLENE GLYCOL 17 GM PACKET PO PRN ×2 (08:11→21:22)
[2020-09-01] MEDS: GABAPENTIN 100 MG CAPSULE PO SCH ×3 (08:12→21:22)
[2020-09-01] MEDS: INSULIN GLARGINE 100 UNITS/ML, PEN SQ-INSULIN SCH ×2 (08:12→21:24)
[2020-09-01] MEDS: SENNOSIDES 8.6 MG TABLET PO SCH ×2 (08:12→21:22)
[2020-09-01] MEDS: metFORMIN 850 MG TABLET PO SCH ×3 (08:12→16:24)
[2020-09-01 12:49] VITALS: BP 123/81
[2020-09-01 19:23] VITALS: BP 134/83
[2020-09-02] MEDS: NICOTINE 21 MG/24 HR PATCH.TD24 TD SCH (00:44)
[2020-09-02] MEDS: CYCLOBENZAPRINE 10 MG TABLET PO SCH ×3 (00:44→16:30)
[2020-09-02 02:25] VITALS: BP 120/87
[2020-09-02 06:59] VITALS: BP 130/84
[2020-09-02] MEDS: INSULIN LISPRO 100 UNITS/ML, PEN SQ-INSULIN SCH ×4 (07:00→21:00)
[2020-09-02] MEDS: SENNOSIDES 8.6 MG TABLET PO SCH ×2 (08:39→21:02)
[2020-09-02] MEDS: GABAPENTIN 100 MG CAPSULE PO SCH ×3 (08:39→21:02)
[2020-09-02] MEDS: metFORMIN 850 MG TABLET PO SCH ×3 (08:39→16:31)
[2020-09-02] MEDS: POLYETHYLENE GLYCOL 17 GM PACKET PO PRN ×2 (08:39→21:03)
[2020-09-02] MEDS: INSULIN GLARGINE 100 UNITS/ML, PEN SQ-INSULIN SCH ×2 (08:39→21:20)
[2020-09-02] MEDS: OXYcodone IR 5MG TABLET PO PRN ×3 (08:41→21:02)
[2020-09-02 14:03] VITALS: BP 128/79
[2020-09-02 20:30] VITALS: BP 128/64
[2020-09-03 00:35] VITALS: BP 128/86
[2020-09-03] MEDS: NICOTINE 21 MG/24 HR PATCH.TD24 TD SCH (00:38)
[2020-09-03] MEDS: CYCLOBENZAPRINE 10 MG TABLET PO SCH ×3 (00:38→16:03)
[2020-09-03] MEDS: OXYcodone IR 5MG TABLET PO PRN ×3 (04:50→20:19)
[2020-09-03 07:47] VITALS: BP 116/67
[2020-09-03] MEDS: GABAPENTIN 100 MG CAPSULE PO SCH ×3 (07:51→20:19)
[2020-09-03] MEDS: SENNOSIDES 8.6 MG TABLET PO SCH ×2 (07:51→20:18)
[2020-09-03] MEDS: metFORMIN 850 MG TABLET PO SCH ×3 (07:51→17:13)
[2020-09-03] MEDS: INSULIN LISPRO 100 UNITS/ML, PEN SQ-INSULIN SCH ×4 (07:51→20:32)
[2020-09-03] MEDS: INSULIN GLARGINE 100 UNITS/ML, PEN SQ-INSULIN SCH ×2 (07:52→20:35)
[2020-09-03] MEDS: BISACODYL 10 MG SUPP PR PRN (07:52)
[2020-09-03 13:46] VITALS: BP 134/88
[2020-09-03 19:32] VITALS: BP 122/80
[2020-09-04] MEDS: OXYcodone IR 5MG TABLET PO PRN ×4 (00:43→21:53)
[2020-09-04] MEDS: CYCLOBENZAPRINE 10 MG TABLET PO SCH ×3 (00:43→17:04)
[2020-09-04] MEDS: NICOTINE 21 MG/24 HR PATCH.TD24 TD SCH (00:44)
[2020-09-04 01:10] VITALS: BP 132/86
[2020-09-04] MEDS: INSULIN LISPRO 100 UNITS/ML, PEN SQ-INSULIN SCH ×4 (07:00→21:57)
[2020-09-04 07:51] VITALS: BP 128/81
[2020-09-04] MEDS: SENNOSIDES 8.6 MG TABLET PO SCH ×2 (07:52→21:54)
[2020-09-04] MEDS: GABAPENTIN 100 MG CAPSULE PO SCH ×3 (07:53→21:53)
[2020-09-04] MEDS: metFORMIN 850 MG TABLET PO SCH ×3 (07:53→17:03)
[2020-09-04] MEDS: INSULIN GLARGINE 100 UNITS/ML, PEN SQ-INSULIN SCH ×2 (07:54→22:00)
[2020-09-04 13:37] VITALS: BP 127/86
[2020-09-04 18:59] VITALS: BP 129/84
[2020-09-05] MEDS: CYCLOBENZAPRINE 10 MG TABLET PO SCH ×4 (01:29→23:56)
[2020-09-05] MEDS: NICOTINE 21 MG/24 HR PATCH.TD24 TD SCH ×2 (01:29→23:55)
[2020-09-05 01:38] VITALS: BP 117/82
[2020-09-05 06:58] VITALS: BP 138/86
[2020-09-05] MEDS: INSULIN LISPRO 100 UNITS/ML, PEN SQ-INSULIN SCH ×4 (07:16→20:47)
[2020-09-05] MEDS: GABAPENTIN 100 MG CAPSULE PO SCH ×3 (07:57→20:46)
[2020-09-05] MEDS: metFORMIN 850 MG TABLET PO SCH ×3 (07:57→16:04)
[2020-09-05] MEDS: SENNOSIDES 8.6 MG TABLET PO SCH ×2 (07:57→20:46)
[2020-09-05] MEDS: INSULIN GLARGINE 100 UNITS/ML, PEN SQ-INSULIN SCH ×2 (07:58→20:46)
[2020-09-05] MEDS: OXYcodone IR 5MG TABLET PO PRN ×3 (08:02→21:56)
[2020-09-05 14:08] VITALS: BP 117/75
[2020-09-05 18:55] VITALS: BP 119/79
[2020-09-06 03:26] VITALS: BP 131/82
[2020-09-06] MEDS: OXYcodone IR 5MG TABLET PO PRN ×3 (06:20→21:32)
[2020-09-06] MEDS: INSULIN LISPRO 100 UNITS/ML, PEN SQ-INSULIN SCH ×4 (06:20→21:31)
[2020-09-06 06:47] VITALS: BP 127/74
[2020-09-06] MEDS: INSULIN GLARGINE 100 UNITS/ML, PEN SQ-INSULIN SCH ×2 (08:37→21:48)
[2020-09-06] MEDS: SENNOSIDES 8.6 MG TABLET PO SCH ×2 (08:37→21:32)
[2020-09-06] MEDS: metFORMIN 850 MG TABLET PO SCH ×3 (08:37→17:36)
[2020-09-06] MEDS: GABAPENTIN 100 MG CAPSULE PO SCH ×3 (08:37→21:32)
[2020-09-06] MEDS: CYCLOBENZAPRINE 10 MG TABLET PO SCH ×2 (08:37→17:36)
[2020-09-06 13:09] VITALS: BP 122/70
[2020-09-06 18:57] VITALS: BP 109/74
[2020-09-07] MEDS: CYCLOBENZAPRINE 10 MG TABLET PO SCH ×3 (00:30→17:13)
[2020-09-07] MEDS: NICOTINE 21 MG/24 HR PATCH.TD24 TD SCH (00:31)
[2020-09-07 01:05] VITALS: BP 122/82
[2020-09-07 05:14] LABS: BASOPHILS % (AUTO) 1 % (0-1); EOSINOPHILS % (AUTO) 3 % (1-7); LYMPHOCYTES % (AUTO) 36 % (22-44); MEAN CORPUSCULAR HEMOGLOBIN 30.2 pg (27.5-34.5); MEAN PLATELET VOLUME 7.3 fL (7.4-10.4); MONOCYTES % (AUTO) 10 % (2-9); NEUTROPHILS % (AUTO) 50 % (42-75); PLATELET COUNT 355 x10^3/uL (130-400); RED BLOOD COUNT 4.56 x10^6/uL (4.38-5.82)
[2020-09-07 05:15] LABS: MD NO
[2020-09-07 05:24] LABS: ALANINE AMINOTRANSFERASE 37 U/L (12-78); ALBUMIN 3.3 g/dL (3.4-5.0); ANION GAP 6 mmol/L (5-15); CALCIUM 9.3 mg/dL (8.5-10.1); CHLORIDE 105 mmol/L (98-107); CREATININE 0.64 mg/dL (0.7-1.3)
[2020-09-07 05:26] LABS: ALKALINE PHOSPHATASE 85 U/L (45-117); BILIRUBIN,TOTAL 0.4 mg/dL (0.2-1.0); TOTAL PROTEIN 7.3 g/dL (6.4-8.2)
[2020-09-07 06:34] VITALS: BP 135/82
[2020-09-07] MEDS: SENNOSIDES 8.6 MG TABLET PO SCH ×2 (07:46→20:29)
[2020-09-07] MEDS: GABAPENTIN 100 MG CAPSULE PO SCH ×3 (07:46→20:29)
[2020-09-07] MEDS: metFORMIN 850 MG TABLET PO SCH ×3 (07:46→17:12)
[2020-09-07] MEDS: INSULIN GLARGINE 100 UNITS/ML, PEN SQ-INSULIN SCH ×2 (07:47→20:40)
[2020-09-07] MEDS: INSULIN LISPRO 100 UNITS/ML, PEN SQ-INSULIN SCH ×4 (07:47→20:39)
[2020-09-07 12:30] VITALS: BP 129/81
[2020-09-07] MEDS: DAKIN'S SOLUTION 1/4 STRENGTH 1,000 ML IRRIG SOLN EXT SCH (13:00)
[2020-09-07] MEDS: OXYcodone IR 5MG TABLET PO PRN (17:14)
[2020-09-07 20:14] VITALS: BP 117/75
[2020-09-08] MEDS: CYCLOBENZAPRINE 10 MG TABLET PO SCH ×3 (01:05→15:52)
[2020-09-08] MEDS: DAKIN'S SOLUTION 1/4 STRENGTH 1,000 ML IRRIG SOLN EXT SCH ×3 (01:05→21:01)
[2020-09-08] MEDS: NICOTINE 21 MG/24 HR PATCH.TD24 TD SCH (01:05)
[2020-09-08 02:49] VITALS: BP 114/77
[2020-09-08 06:33] VITALS: BP 133/85
[2020-09-08] MEDS: INSULIN LISPRO 100 UNITS/ML, PEN SQ-INSULIN SCH ×4 (06:37→21:17)
[2020-09-08] MEDS: GABAPENTIN 100 MG CAPSULE PO SCH ×3 (08:41→21:02)
[2020-09-08] MEDS: SENNOSIDES 8.6 MG TABLET PO SCH ×2 (08:41→21:01)
[2020-09-08] MEDS: metFORMIN 850 MG TABLET PO SCH ×3 (08:41→17:06)
[2020-09-08] MEDS: INSULIN GLARGINE 100 UNITS/ML, PEN SQ-INSULIN SCH ×2 (08:42→21:17)
[2020-09-08] MEDS: OXYcodone IR 5MG TABLET PO PRN (13:49)
[2020-09-08 14:02] VITALS: BP 117/79
[2020-09-08 18:35] VITALS: BP 129/78
[2020-09-08] MEDS: POLYETHYLENE GLYCOL 17 GM PACKET PO PRN (21:01)
[2020-09-09] MEDS: NICOTINE 21 MG/24 HR PATCH.TD24 TD SCH (00:17)
[2020-09-09] MEDS: CYCLOBENZAPRINE 10 MG TABLET PO SCH ×3 (00:17→16:17)
[2020-09-09 00:35] VITALS: BP 120/73
[2020-09-09] MEDS: OXYcodone IR 5MG TABLET PO PRN ×3 (04:07→21:37)
[2020-09-09 04:56] LABS: BASOPHILS % (AUTO) 1 % (0-1); EOSINOPHILS % (AUTO) 4 % (1-7); LYMPHOCYTES % (AUTO) 34 % (22-44); MEAN CORPUSCULAR HGB CONC 33.8 g/dL (33.2-36.2); MEAN PLATELET VOLUME 7.7 fL (7.4-10.4); MONOCYTES % (AUTO) 10 % (2-9); NEUTROPHILS % (AUTO) 51 % (42-75); PLATELET COUNT 326 x10^3/uL (130-400); RED BLOOD COUNT 4.55 x10^6/uL (4.38-5.82); RED CELL DISTRIBUTION WIDTH 13.1 % (9.4-14.8)
[2020-09-09 04:59] LABS: MD NO
[2020-09-09 06:58] VITALS: BP 105/70
[2020-09-09] MEDS: INSULIN LISPRO 100 UNITS/ML, PEN SQ-INSULIN SCH ×4 (07:00→21:00)
[2020-09-09] MEDS: GABAPENTIN 100 MG CAPSULE PO SCH ×3 (10:08→21:37)
[2020-09-09] MEDS: SENNOSIDES 8.6 MG TABLET PO SCH ×2 (10:09→21:37)
[2020-09-09] MEDS: metFORMIN 850 MG TABLET PO SCH ×3 (10:09→16:17)
[2020-09-09] MEDS: INSULIN GLARGINE 100 UNITS/ML, PEN SQ-INSULIN SCH ×2 (10:10→21:37)
[2020-09-09] MEDS: DAKIN'S SOLUTION 1/4 STRENGTH 1,000 ML IRRIG SOLN EXT SCH ×2 (10:14→21:38)
[2020-09-09 13:21] VITALS: BP 110/71
[2020-09-09] MEDS: BISACODYL 10 MG SUPP PR PRN (16:18)
[2020-09-09 19:32] VITALS: BP 104/67
[2020-09-10] MEDS: NICOTINE 21 MG/24 HR PATCH.TD24 TD SCH (00:47)
[2020-09-10] MEDS: CYCLOBENZAPRINE 10 MG TABLET PO SCH ×3 (00:47→16:34)
[2020-09-10 00:55] VITALS: BP 134/73
[2020-09-10 07:31] VITALS: BP 118/75
[2020-09-10] MEDS: INSULIN GLARGINE 100 UNITS/ML, PEN SQ-INSULIN SCH ×2 (08:18→20:24)
[2020-09-10] MEDS: metFORMIN 850 MG TABLET PO SCH ×3 (08:18→16:34)
[2020-09-10] MEDS: INSULIN LISPRO 100 UNITS/ML, PEN SQ-INSULIN SCH ×4 (08:18→20:24)
[2020-09-10] MEDS: SENNOSIDES 8.6 MG TABLET PO SCH ×2 (08:19→19:37)
[2020-09-10] MEDS: GABAPENTIN 100 MG CAPSULE PO SCH ×3 (08:19→19:37)
[2020-09-10] MEDS: DAKIN'S SOLUTION 1/4 STRENGTH 1,000 ML IRRIG SOLN EXT SCH (11:46)
[2020-09-10] MEDS: OXYcodone IR 5MG TABLET PO PRN ×2 (12:41→19:37)
[2020-09-10 12:54] VITALS: BP 121/81
[2020-09-10 19:31] VITALS: BP 113/82
[2020-09-11] MEDS: DAKIN'S SOLUTION 1/4 STRENGTH 1,000 ML IRRIG SOLN EXT SCH ×3 (00:11→21:00)
[2020-09-11] MEDS: OXYcodone IR 5MG TABLET PO PRN ×3 (00:11→21:44)
[2020-09-11] MEDS: NICOTINE 21 MG/24 HR PATCH.TD24 TD SCH ×2 (00:11→21:44)
[2020-09-11] MEDS: CYCLOBENZAPRINE 10 MG TABLET PO SCH ×3 (00:11→17:47)
[2020-09-11 01:07] VITALS: BP 129/81
[2020-09-11] MEDS: INSULIN LISPRO 100 UNITS/ML, PEN SQ-INSULIN SCH ×4 (07:00→21:00)
[2020-09-11 08:10] VITALS: BP 133/67
[2020-09-11] MEDS: GABAPENTIN 100 MG CAPSULE PO SCH ×3 (08:37→21:00)
[2020-09-11] MEDS: SENNOSIDES 8.6 MG TABLET PO SCH ×2 (08:37→21:00)
[2020-09-11] MEDS: metFORMIN 850 MG TABLET PO SCH ×3 (08:37→17:47)
[2020-09-11] MEDS: INSULIN GLARGINE 100 UNITS/ML, PEN SQ-INSULIN SCH ×2 (08:38→21:44)
[2020-09-11 14:29] VITALS: BP 133/80
[2020-09-11 19:05] VITALS: BP 133/83
[2020-09-12] MEDS: CYCLOBENZAPRINE 10 MG TABLET PO SCH ×3 (01:11→16:46)
[2020-09-12 01:19] VITALS: BP 112/73
[2020-09-12] MEDS: INSULIN LISPRO 100 UNITS/ML, PEN SQ-INSULIN SCH ×4 (07:00→20:55)
[2020-09-12 09:02] VITALS: BP 130/82
[2020-09-12] MEDS: metFORMIN 850 MG TABLET PO SCH ×3 (09:52→16:46)
[2020-09-12] MEDS: SENNOSIDES 8.6 MG TABLET PO SCH ×2 (09:52→20:55)
[2020-09-12] MEDS: GABAPENTIN 100 MG CAPSULE PO SCH ×3 (09:52→20:55)
[2020-09-12] MEDS: DAKIN'S SOLUTION 1/4 STRENGTH 1,000 ML IRRIG SOLN EXT SCH ×2 (10:04→20:55)
[2020-09-12] MEDS: INSULIN GLARGINE 100 UNITS/ML, PEN SQ-INSULIN SCH ×2 (11:48→20:55)
[2020-09-12 13:07] VITALS: BP 126/76
[2020-09-12] MEDS: OXYcodone IR 5MG TABLET PO PRN (13:50)
[2020-09-12 19:40] VITALS: BP 102/66
[2020-09-13] MEDS: NICOTINE 21 MG/24 HR PATCH.TD24 TD SCH (00:27)
[2020-09-13] MEDS: CYCLOBENZAPRINE 10 MG TABLET PO SCH ×3 (00:27→17:11)
[2020-09-13 00:30] VITALS: BP 105/69
[2020-09-13] MEDS: OXYcodone IR 5MG TABLET PO PRN ×2 (06:29→17:45)
[2020-09-13 06:34] VITALS: BP 138/72
[2020-09-13] MEDS: INSULIN LISPRO 100 UNITS/ML, PEN SQ-INSULIN SCH ×4 (07:00→20:47)
[2020-09-13] MEDS: GABAPENTIN 100 MG CAPSULE PO SCH ×3 (08:06→20:45)
[2020-09-13] MEDS: metFORMIN 850 MG TABLET PO SCH ×3 (08:06→17:11)
[2020-09-13] MEDS: SENNOSIDES 8.6 MG TABLET PO SCH ×2 (08:06→20:45)
[2020-09-13] MEDS: INSULIN GLARGINE 100 UNITS/ML, PEN SQ-INSULIN SCH ×2 (08:16→20:47)
[2020-09-13 13:13] VITALS: BP 128/83
[2020-09-13] MEDS: ACETAMINOPHEN 325 MG TABLET PO PRN (17:48)
[2020-09-13 19:37] VITALS: BP 135/75
[2020-09-14] MEDS: CYCLOBENZAPRINE 10 MG TABLET PO SCH ×3 (01:35→17:56)
[2020-09-14] MEDS: NICOTINE 21 MG/24 HR PATCH.TD24 TD SCH (01:37)
[2020-09-14 02:28] VITALS: BP 131/80
[2020-09-14] MEDS: ACETAMINOPHEN 325 MG TABLET PO PRN ×3 (05:40→21:53)
[2020-09-14] MEDS: OXYcodone IR 5MG TABLET PO PRN ×4 (05:40→21:53)
[2020-09-14 07:09] VITALS: BP 105/74
[2020-09-14] MEDS: metFORMIN 850 MG TABLET PO SCH ×3 (08:03→16:17)
[2020-09-14] MEDS: GABAPENTIN 100 MG CAPSULE PO SCH ×3 (08:03→21:53)
[2020-09-14] MEDS: SENNOSIDES 8.6 MG TABLET PO SCH ×2 (08:03→21:53)
[2020-09-14] MEDS: INSULIN LISPRO 100 UNITS/ML, PEN SQ-INSULIN SCH ×4 (08:04→21:58)
[2020-09-14] MEDS: INSULIN GLARGINE 100 UNITS/ML, PEN SQ-INSULIN SCH ×2 (08:05→21:58)
[2020-09-14 13:50] VITALS: BP 147/85
[2020-09-14 19:37] VITALS: BP 125/80
[2020-09-14] MEDS: LORazepam 1MG TABLET PO PRN (21:53)
[2020-09-14 23:53] LABS: MICROSCOPIC INDICATED
[2020-09-15 01:54] VITALS: BP 119/80
[2020-09-15] MEDS: CYCLOBENZAPRINE 10 MG TABLET PO SCH ×3 (01:57→17:17)
[2020-09-15] MEDS: NICOTINE 21 MG/24 HR PATCH.TD24 TD SCH (01:57)
[2020-09-15 06:28] VITALS: BP 108/70
[2020-09-15] MEDS: GABAPENTIN 100 MG CAPSULE PO SCH ×3 (08:10→20:26)
[2020-09-15] MEDS: SENNOSIDES 8.6 MG TABLET PO SCH ×3 (08:10→20:26)
[2020-09-15] MEDS: metFORMIN 850 MG TABLET PO SCH ×3 (08:10→16:29)
[2020-09-15] MEDS: INSULIN LISPRO 100 UNITS/ML, PEN SQ-INSULIN SCH ×4 (08:11→20:26)
[2020-09-15] MEDS: INSULIN GLARGINE 100 UNITS/ML, PEN SQ-INSULIN SCH ×2 (08:11→20:26)
[2020-09-15] MEDS: OXYcodone IR 5MG TABLET PO PRN ×3 (10:14→20:26)
[2020-09-15] MEDS: ACETAMINOPHEN 325 MG TABLET PO PRN ×2 (10:15→15:13)
[2020-09-15 13:48] VITALS: BP 134/84
[2020-09-15 20:20] VITALS: BP 134/88
[2020-09-15] MEDS: BUTALB/APAP/CAFFEINE 50MG/325MG/40MG PO PRN (22:08)
[2020-09-16] MEDS: CEFTRIAXONE 1,000 MG in DEXTROSE 5% 50 ML IVPB SCH (00:27)
[2020-09-16 00:32] VITALS: BP 114/75
[2020-09-16] MEDS: LORazepam 1MG TABLET PO PRN ×2 (00:39→09:38)
[2020-09-16] MEDS: CYCLOBENZAPRINE 10 MG TABLET PO SCH ×3 (01:36→17:00)
[2020-09-16] MEDS: NICOTINE 21 MG/24 HR PATCH.TD24 TD SCH (01:36)
[2020-09-16 06:02] LABS: BASOPHILS % (AUTO) 1 % (0-1); EOSINOPHILS % (AUTO) 2 % (1-7); LYMPHOCYTES % (AUTO) 32 % (22-44); MD NO; MEAN CORPUSCULAR HEMOGLOBIN 29.8 pg (27.5-34.5); MEAN PLATELET VOLUME 7.7 fL (7.4-10.4); MONOCYTES % (AUTO) 15 % (2-9); NEUTROPHILS % (AUTO) 50 % (42-75); PLATELET COUNT 281 x10^3/uL (130-400); RED BLOOD COUNT 4.72 x10^6/uL (4.38-5.82); RED CELL DISTRIBUTION WIDTH 12.9 % (9.4-14.8)
[2020-09-16 06:15] LABS: ANION GAP 6 mmol/L (5-15); CALCIUM 9.6 mg/dL (8.5-10.1); CHLORIDE 101 mmol/L (98-107); CREATININE 0.65 mg/dL (0.7-1.3)
[2020-09-16] MEDS: INSULIN LISPRO 100 UNITS/ML, PEN SQ-INSULIN SCH ×4 (07:00→20:58)
[2020-09-16 07:54] VITALS: BP 136/85
[2020-09-16] MEDS: SENNOSIDES 8.6 MG TABLET PO SCH ×2 (08:00→19:49)
[2020-09-16] MEDS: metFORMIN 850 MG TABLET PO SCH ×3 (08:00→16:15)
[2020-09-16] MEDS: GABAPENTIN 100 MG CAPSULE PO SCH ×3 (08:00→19:49)
[2020-09-16] MEDS: INSULIN GLARGINE 100 UNITS/ML, PEN SQ-INSULIN SCH ×2 (08:02→21:00)
[2020-09-16] MEDS: BUTALB/APAP/CAFFEINE 50MG/325MG/40MG PO PRN (09:38)
[2020-09-16 13:52] VITALS: BP 108/73
[2020-09-16] MEDS: ACETAMINOPHEN 325 MG TABLET PO PRN (17:00)
[2020-09-16] MEDS: OXYcodone IR 5MG TABLET PO PRN (17:01)
[2020-09-16 20:54] VITALS: BP 137/83
[2020-09-17] MEDS: CYCLOBENZAPRINE 10 MG TABLET PO SCH ×3 (01:23→17:49)
[2020-09-17] MEDS: NICOTINE 21 MG/24 HR PATCH.TD24 TD SCH (01:24)
[2020-09-17] MEDS: CEFTRIAXONE 1,000 MG in DEXTROSE 5% 50 ML IVPB SCH (01:24)
[2020-09-17 01:28] VITALS: BP 115/77
[2020-09-17] MEDS: LORazepam 1MG TABLET PO PRN (01:49)
[2020-09-17] MEDS: CEFDINIR 300 MG CAPSULE PO SCH ×2 (03:10→16:29)
[2020-09-17] MEDS: OXYcodone IR 5MG TABLET PO PRN ×2 (03:16→20:38)
[2020-09-17] MEDS: INSULIN LISPRO 100 UNITS/ML, PEN SQ-INSULIN SCH ×4 (07:00→20:39)
[2020-09-17 08:37] VITALS: BP 124/79
[2020-09-17] MEDS: SENNOSIDES 8.6 MG TABLET PO SCH ×2 (08:44→20:38)
[2020-09-17] MEDS: metFORMIN 850 MG TABLET PO SCH ×3 (08:44→16:29)
[2020-09-17] MEDS: GABAPENTIN 100 MG CAPSULE PO SCH ×3 (08:44→20:37)
[2020-09-17] MEDS: INSULIN GLARGINE 100 UNITS/ML, PEN SQ-INSULIN SCH ×2 (08:45→21:07)
[2020-09-17 12:02] VITALS: BP 131/87
[2020-09-17 20:00] VITALS: BP 117/83
[2020-09-17] MEDS: BUTALB/APAP/CAFFEINE 50MG/325MG/40MG PO PRN (20:37)
[2020-09-18] MEDS: CEFTRIAXONE 1,000 MG in DEXTROSE 5% 50 ML IVPB SCH (01:00)
[2020-09-18 01:15] VITALS: BP 128/83
[2020-09-18] MEDS: LORazepam 1MG TABLET PO PRN ×2 (02:05→23:52)
[2020-09-18] MEDS: CYCLOBENZAPRINE 10 MG TABLET PO SCH ×3 (02:05→16:12)
[2020-09-18] MEDS: NICOTINE 21 MG/24 HR PATCH.TD24 TD SCH (02:05)
[2020-09-18] MEDS: CEFDINIR 300 MG CAPSULE PO SCH ×2 (04:27→16:12)
[2020-09-18 07:12] VITALS: BP 129/86
[2020-09-18] MEDS: SENNOSIDES 8.6 MG TABLET PO SCH ×2 (08:34→20:01)
[2020-09-18] MEDS: INSULIN GLARGINE 100 UNITS/ML, PEN SQ-INSULIN SCH ×3 (08:34→20:03)
[2020-09-18] MEDS: metFORMIN 850 MG TABLET PO SCH ×3 (08:34→16:12)
[2020-09-18] MEDS: GABAPENTIN 100 MG CAPSULE PO SCH ×3 (08:34→20:01)
[2020-09-18] MEDS: INSULIN LISPRO 100 UNITS/ML, PEN SQ-INSULIN SCH ×4 (08:35→20:03)
[2020-09-18 12:51] VITALS: BP 148/83
[2020-09-18] MEDS: OXYcodone IR 5MG TABLET PO PRN ×2 (13:58→20:02)
[2020-09-18 19:36] VITALS: BP 120/86
[2020-09-19 00:03] VITALS: BP 98/65
[2020-09-19] MEDS: NICOTINE 21 MG/24 HR PATCH.TD24 TD SCH (01:55)
[2020-09-19] MEDS: CYCLOBENZAPRINE 10 MG TABLET PO SCH ×3 (01:55→20:35)
[2020-09-19] MEDS: OXYcodone IR 5MG TABLET PO PRN ×3 (02:01→20:35)
[2020-09-19] MEDS: CEFDINIR 300 MG CAPSULE PO SCH ×2 (05:05→16:50)
[2020-09-19 06:57] VITALS: BP 105/72
[2020-09-19] MEDS: INSULIN LISPRO 100 UNITS/ML, PEN SQ-INSULIN SCH ×4 (07:00→20:36)
[2020-09-19] MEDS: metFORMIN 850 MG TABLET PO SCH ×3 (08:36→16:24)
[2020-09-19] MEDS: SENNOSIDES 8.6 MG TABLET PO SCH ×2 (08:37→20:36)
[2020-09-19] MEDS: GABAPENTIN 100 MG CAPSULE PO SCH ×3 (08:37→20:35)
[2020-09-19] MEDS: INSULIN GLARGINE 100 UNITS/ML, PEN SQ-INSULIN SCH ×2 (09:20→20:42)
[2020-09-19 18:44] VITALS: BP 122/76
[2020-09-19] MEDS: LORazepam 1MG TABLET PO PRN (20:35)
[2020-09-20 00:07] VITALS: BP 138/81
[2020-09-20] MEDS: CYCLOBENZAPRINE 10 MG TABLET PO SCH ×3 (04:48→21:24)
[2020-09-20] MEDS: CEFDINIR 300 MG CAPSULE PO SCH ×2 (04:48→15:57)
[2020-09-20] MEDS: OXYcodone IR 5MG TABLET PO PRN ×3 (04:49→15:08)
[2020-09-20] MEDS: NICOTINE 21 MG/24 HR PATCH.TD24 TD SCH (04:49)
[2020-09-20 06:29] VITALS: BP 105/68
[2020-09-20] MEDS: GABAPENTIN 100 MG CAPSULE PO SCH ×3 (07:48→21:24)
[2020-09-20] MEDS: SENNOSIDES 8.6 MG TABLET PO SCH ×2 (07:49→21:24)
[2020-09-20] MEDS: metFORMIN 850 MG TABLET PO SCH ×3 (07:49→15:57)
[2020-09-20] MEDS: INSULIN GLARGINE 100 UNITS/ML, PEN SQ-INSULIN SCH ×2 (07:50→21:25)
[2020-09-20] MEDS: INSULIN LISPRO 100 UNITS/ML, PEN SQ-INSULIN SCH ×4 (07:52→20:37)
[2020-09-20 14:04] VITALS: BP 102/66
[2020-09-20 18:43] VITALS: BP 113/68
[2020-09-21 00:24] VITALS: BP 112/70
[2020-09-21] MEDS: CYCLOBENZAPRINE 10 MG TABLET PO SCH ×3 (04:19→20:12)
[2020-09-21] MEDS: CEFDINIR 300 MG CAPSULE PO SCH ×2 (04:19→16:03)
[2020-09-21] MEDS: NICOTINE 21 MG/24 HR PATCH.TD24 TD SCH (04:22)
[2020-09-21] MEDS: INSULIN LISPRO 100 UNITS/ML, PEN SQ-INSULIN SCH ×4 (07:00→20:35)
[2020-09-21 07:35] VITALS: BP 124/79
[2020-09-21] MEDS: GABAPENTIN 100 MG CAPSULE PO SCH ×3 (08:00→20:12)
[2020-09-21] MEDS: metFORMIN 850 MG TABLET PO SCH ×3 (08:00→16:04)
[2020-09-21] MEDS: SENNOSIDES 8.6 MG TABLET PO SCH ×2 (08:01→20:12)
[2020-09-21] MEDS: INSULIN GLARGINE 100 UNITS/ML, PEN SQ-INSULIN SCH ×2 (08:02→20:45)
[2020-09-21 12:28] VITALS: BP 114/77
[2020-09-21] MEDS: OXYcodone IR 5MG TABLET PO PRN (16:03)
[2020-09-21 19:15] VITALS: BP 123/77
[2020-09-22 00:32] VITALS: BP 106/67
[2020-09-22] MEDS: CYCLOBENZAPRINE 10 MG TABLET PO SCH ×3 (04:06→21:19)
[2020-09-22] MEDS: NICOTINE 21 MG/24 HR PATCH.TD24 TD SCH (05:00)
[2020-09-22] MEDS: CEFDINIR 300 MG CAPSULE PO SCH (05:08)
[2020-09-22] MEDS: INSULIN LISPRO 100 UNITS/ML, PEN SQ-INSULIN SCH ×4 (07:00→21:00)
[2020-09-22 07:27] VITALS: BP 114/79
[2020-09-22] MEDS: metFORMIN 850 MG TABLET PO SCH ×3 (07:44→16:17)
[2020-09-22] MEDS: GABAPENTIN 100 MG CAPSULE PO SCH ×3 (07:44→21:20)
[2020-09-22] MEDS: INSULIN GLARGINE 100 UNITS/ML, PEN SQ-INSULIN SCH ×2 (07:44→21:56)
[2020-09-22] MEDS: SENNOSIDES 8.6 MG TABLET PO SCH ×2 (07:45→21:00)
[2020-09-22] MEDS: OXYcodone IR 5MG TABLET PO PRN (12:21)
[2020-09-22 14:00] VITALS: BP 102/66
[2020-09-22 20:01] VITALS: BP 103/66
[2020-09-23 01:16] VITALS: BP 101/68
[2020-09-23] MEDS: CYCLOBENZAPRINE 10 MG TABLET PO SCH ×4 (04:38→21:10)
[2020-09-23] MEDS: NICOTINE 21 MG/24 HR PATCH.TD24 TD SCH (04:55)
[2020-09-23] MEDS: INSULIN LISPRO 100 UNITS/ML, PEN SQ-INSULIN SCH ×4 (07:00→21:00)
[2020-09-23 07:04] VITALS: BP 121/80
[2020-09-23] MEDS: GABAPENTIN 100 MG CAPSULE PO SCH ×3 (08:52→21:10)
[2020-09-23] MEDS: metFORMIN 850 MG TABLET PO SCH ×3 (08:52→16:04)
[2020-09-23] MEDS: SENNOSIDES 8.6 MG TABLET PO SCH ×2 (10:09→21:00)
[2020-09-23] MEDS: INSULIN GLARGINE 100 UNITS/ML, PEN SQ-INSULIN SCH ×2 (10:10→21:38)
[2020-09-23 12:38] VITALS: BP 100/66
[2020-09-23 19:30] VITALS: BP 106/69
[2020-09-24 01:15] VITALS: BP 117/68
[2020-09-24] MEDS: CYCLOBENZAPRINE 10 MG TABLET PO SCH ×3 (04:19→20:02)
[2020-09-24] MEDS: NICOTINE 21 MG/24 HR PATCH.TD24 TD SCH (05:00)
[2020-09-24] MEDS: INSULIN LISPRO 100 UNITS/ML, PEN SQ-INSULIN SCH ×4 (07:00→20:20)
[2020-09-24 07:34] VITALS: BP 122/79
[2020-09-24] MEDS: metFORMIN 850 MG TABLET PO SCH ×3 (08:24→16:06)
[2020-09-24] MEDS: SENNOSIDES 8.6 MG TABLET PO SCH ×2 (08:24→20:02)
[2020-09-24] MEDS: GABAPENTIN 100 MG CAPSULE PO SCH ×3 (08:24→20:02)
[2020-09-24] MEDS: OXYcodone IR 5MG TABLET PO PRN (08:38)
[2020-09-24] MEDS: INSULIN GLARGINE 100 UNITS/ML, PEN SQ-INSULIN SCH ×2 (09:21→20:20)
[2020-09-24 12:03] VITALS: BP 117/76
[2020-09-24 19:26] VITALS: BP 89/58
[2020-09-24 21:42] VITALS: BP 110/74
[2020-09-25 00:41] VITALS: BP 119/80
[2020-09-25] MEDS: CYCLOBENZAPRINE 10 MG TABLET PO SCH ×3 (04:19→20:32)
[2020-09-25] MEDS: NICOTINE 21 MG/24 HR PATCH.TD24 TD SCH (05:00)
[2020-09-25 06:33] VITALS: BP 122/78
[2020-09-25] MEDS: INSULIN LISPRO 100 UNITS/ML, PEN SQ-INSULIN SCH ×4 (07:00→20:36)
[2020-09-25] MEDS: metFORMIN 850 MG TABLET PO SCH ×3 (08:26→16:00)
[2020-09-25] MEDS: GABAPENTIN 100 MG CAPSULE PO SCH ×3 (08:26→20:32)
[2020-09-25] MEDS: SENNOSIDES 8.6 MG TABLET PO SCH ×2 (08:26→20:32)
[2020-09-25] MEDS: INSULIN GLARGINE 100 UNITS/ML, PEN SQ-INSULIN SCH ×2 (09:15→20:50)
[2020-09-25] MEDS: OXYcodone IR 5MG TABLET PO PRN ×2 (10:09→20:51)
[2020-09-25 12:22] VITALS: BP 110/67
[2020-09-25 19:07] VITALS: BP 120/75
[2020-09-26 01:14] VITALS: BP 116/80
[2020-09-26] MEDS: CYCLOBENZAPRINE 10 MG TABLET PO SCH ×3 (04:18→20:51)
[2020-09-26] MEDS: NICOTINE 21 MG/24 HR PATCH.TD24 TD SCH (04:19)
[2020-09-26] MEDS: INSULIN LISPRO 100 UNITS/ML, PEN SQ-INSULIN SCH (07:00)
[2020-09-26 07:44] VITALS: BP 116/80
[2020-09-26] MEDS: SENNOSIDES 8.6 MG TABLET PO SCH ×2 (08:10→20:51)
[2020-09-26] MEDS: GABAPENTIN 100 MG CAPSULE PO SCH ×3 (08:10→20:51)
[2020-09-26] MEDS: metFORMIN 850 MG TABLET PO SCH ×3 (08:10→16:45)
[2020-09-26] MEDS: INSULIN GLARGINE 100 UNITS/ML, PEN SQ-INSULIN SCH ×2 (08:11→20:51)
[2020-09-26 14:00] VITALS: BP 122/80
[2020-09-26] MEDS: OXYcodone IR 5MG TABLET PO PRN (18:01)
[2020-09-26 18:32] VITALS: BP 123/81
[2020-09-26] MEDS: LORazepam 1MG TABLET PO PRN (23:37)
[2020-09-27 00:10] VITALS: BP 107/71
[2020-09-27] MEDS: CYCLOBENZAPRINE 10 MG TABLET PO SCH ×3 (04:30→21:19)
[2020-09-27] MEDS: NICOTINE 21 MG/24 HR PATCH.TD24 TD SCH (04:31)
[2020-09-27 07:29] VITALS: BP 102/72
[2020-09-27] MEDS: SENNOSIDES 8.6 MG TABLET PO SCH ×2 (09:00→21:00)
[2020-09-27] MEDS: GABAPENTIN 100 MG CAPSULE PO SCH ×3 (12:22→21:19)
[2020-09-27] MEDS: metFORMIN 850 MG TABLET PO SCH ×3 (12:22→18:19)
[2020-09-27 12:30] VITALS: BP 122/77
[2020-09-27] MEDS: INSULIN GLARGINE 100 UNITS/ML, PEN SQ-INSULIN SCH ×2 (13:20→21:20)
[2020-09-27 20:00] VITALS: BP 121/83
[2020-09-28] MEDS: OXYcodone IR 5MG TABLET PO PRN (00:13)
[2020-09-28 02:00] VITALS: BP 114/75
[2020-09-28] MEDS: LORazepam 1MG TABLET PO PRN (02:55)
[2020-09-28] MEDS: NICOTINE 21 MG/24 HR PATCH.TD24 TD SCH (04:41)
[2020-09-28] MEDS: CYCLOBENZAPRINE 10 MG TABLET PO SCH ×3 (05:14→21:35)
[2020-09-28 06:34] VITALS: BP 121/84
[2020-09-28] MEDS: metFORMIN 850 MG TABLET PO SCH ×3 (08:20→17:27)
[2020-09-28] MEDS: SENNOSIDES 8.6 MG TABLET PO SCH ×2 (09:00→21:35)
[2020-09-28] MEDS: INSULIN GLARGINE 100 UNITS/ML, PEN SQ-INSULIN SCH ×2 (09:43→21:42)
[2020-09-28] MEDS: GABAPENTIN 100 MG CAPSULE PO SCH ×3 (09:43→21:35)
[2020-09-28 13:20] VITALS: BP 113/77
[2020-09-28 19:17] VITALS: BP 112/76
[2020-09-29 00:04] VITALS: BP 121/81
[2020-09-29] MEDS: NICOTINE 21 MG/24 HR PATCH.TD24 TD SCH (05:00)
[2020-09-29] MEDS: CYCLOBENZAPRINE 10 MG TABLET PO SCH (05:58)
[2020-09-29 06:53] VITALS: BP 168/89
[2020-09-29] MEDS: GABAPENTIN 100 MG CAPSULE PO SCH ×3 (08:38→20:30)
[2020-09-29] MEDS: SENNOSIDES 8.6 MG TABLET PO SCH ×2 (08:38→20:30)
[2020-09-29] MEDS: INSULIN GLARGINE 100 UNITS/ML, PEN SQ-INSULIN SCH ×2 (08:39→20:41)
[2020-09-29] MEDS: metFORMIN 850 MG TABLET PO SCH ×3 (08:43→17:26)
[2020-09-29] MEDS ORDERED: CYCLOBENZAPRINE 10 MG TABLET PO PRN (10:00)
[2020-09-29 12:12] VITALS: BP 137/94
[2020-09-29] MEDS: OXYcodone IR 5MG TABLET PO PRN (20:41)
[2020-09-29 20:45] VITALS: BP 123/78
[2020-09-30 00:53] VITALS: BP 123/78
[2020-09-30] MEDS: NICOTINE 21 MG/24 HR PATCH.TD24 TD SCH (04:33)
[2020-09-30 07:33] VITALS: BP 112/77
[2020-09-30] MEDS: GABAPENTIN 100 MG CAPSULE PO SCH ×3 (08:07→21:10)
[2020-09-30] MEDS: SENNOSIDES 8.6 MG TABLET PO SCH ×2 (08:08→21:10)
[2020-09-30] MEDS: metFORMIN 850 MG TABLET PO SCH ×3 (08:08→16:46)
[2020-09-30] MEDS: INSULIN GLARGINE 100 UNITS/ML, PEN SQ-INSULIN SCH ×2 (08:09→21:19)
[2020-09-30 12:16] VITALS: BP 122/82
[2020-09-30 19:45] VITALS: BP 128/84
[2020-10-01 01:45] VITALS: BP 115/77
[2020-10-01] MEDS: NICOTINE 21 MG/24 HR PATCH.TD24 TD SCH (04:34)
[2020-10-01 07:34] VITALS: BP 112/76
[2020-10-01] MEDS: GABAPENTIN 100 MG CAPSULE PO SCH ×3 (08:56→20:48)
[2020-10-01] MEDS: metFORMIN 850 MG TABLET PO SCH ×3 (08:56→17:36)
[2020-10-01] MEDS: SENNOSIDES 8.6 MG TABLET PO SCH ×2 (08:56→20:48)
[2020-10-01] MEDS: INSULIN GLARGINE 100 UNITS/ML, PEN SQ-INSULIN SCH ×2 (08:58→21:05)
[2020-10-01 13:28] VITALS: BP 127/85
[2020-10-01] MEDS: OXYcodone IR 5MG TABLET PO PRN (17:41)
[2020-10-01 19:55] VITALS: BP 111/73
[2020-10-02 02:32] VITALS: BP 121/81
[2020-10-02] MEDS: NICOTINE 21 MG/24 HR PATCH.TD24 TD SCH (05:00)
[2020-10-02 06:42] VITALS: BP 125/84
[2020-10-02] MEDS: SENNOSIDES 8.6 MG TABLET PO SCH ×2 (08:32→20:43)
[2020-10-02] MEDS: metFORMIN 850 MG TABLET PO SCH ×3 (08:32→16:49)
[2020-10-02] MEDS: GABAPENTIN 100 MG CAPSULE PO SCH ×3 (08:32→20:43)
[2020-10-02] MEDS: INSULIN GLARGINE 100 UNITS/ML, PEN SQ-INSULIN SCH ×2 (08:33→22:22)
[2020-10-02 12:26] VITALS: BP 130/85
[2020-10-02 19:15] VITALS: BP 126/84
[2020-10-02] MEDS: OXYcodone IR 5MG TABLET PO PRN (20:43)
[2020-10-02] MEDS: LORazepam 1MG TABLET PO PRN (23:56)
[2020-10-03 01:06] VITALS: BP 108/75
[2020-10-03] MEDS: NICOTINE 21 MG/24 HR PATCH.TD24 TD SCH (04:20)
[2020-10-03 07:22] VITALS: BP 124/75
[2020-10-03] MEDS: metFORMIN 850 MG TABLET PO SCH ×3 (08:00→16:09)
[2020-10-03] MEDS: INSULIN GLARGINE 100 UNITS/ML, PEN SQ-INSULIN SCH ×2 (09:51→20:47)
[2020-10-03] MEDS: GABAPENTIN 100 MG CAPSULE PO SCH ×3 (09:51→20:42)
[2020-10-03] MEDS: SENNOSIDES 8.6 MG TABLET PO SCH ×2 (09:51→21:00)
[2020-10-03 13:03] VITALS: BP 118/72
[2020-10-03 18:33] VITALS: BP 118/80
[2020-10-04 00:56] VITALS: BP 114/58
[2020-10-04] MEDS: NICOTINE 21 MG/24 HR PATCH.TD24 TD SCH (05:00)
[2020-10-04 07:09] VITALS: BP 121/73
[2020-10-04] MEDS: GABAPENTIN 100 MG CAPSULE PO SCH ×3 (09:03→20:19)
[2020-10-04] MEDS: SENNOSIDES 8.6 MG TABLET PO SCH ×2 (09:03→20:19)
[2020-10-04] MEDS: metFORMIN 850 MG TABLET PO SCH ×3 (09:03→16:52)
[2020-10-04] MEDS: INSULIN GLARGINE 100 UNITS/ML, PEN SQ-INSULIN SCH ×2 (09:07→20:25)
[2020-10-04 13:49] VITALS: BP 119/84
[2020-10-04 19:37] VITALS: BP 112/77
[2020-10-05 01:36] VITALS: BP 105/68
[2020-10-05] MEDS: NICOTINE 21 MG/24 HR PATCH.TD24 TD SCH (04:33)
[2020-10-05 06:53] VITALS: BP 136/84
[2020-10-05] MEDS: metFORMIN 850 MG TABLET PO SCH ×3 (07:45→17:17)
[2020-10-05] MEDS: INSULIN GLARGINE 100 UNITS/ML, PEN SQ-INSULIN SCH ×2 (09:42→21:19)
[2020-10-05] MEDS: GABAPENTIN 100 MG CAPSULE PO SCH ×3 (09:42→21:10)
[2020-10-05] MEDS: SENNOSIDES 8.6 MG TABLET PO SCH ×2 (09:42→21:10)
[2020-10-05 13:09] VITALS: BP 115/68
[2020-10-05 18:54] VITALS: BP 104/71
[2020-10-06 00:20] VITALS: BP 116/80
[2020-10-06] MEDS: NICOTINE 21 MG/24 HR PATCH.TD24 TD SCH (05:00)
[2020-10-06 06:45] VITALS: BP 117/79
[2020-10-06] MEDS: metFORMIN 850 MG TABLET PO SCH ×3 (09:05→18:09)
[2020-10-06] MEDS: SENNOSIDES 8.6 MG TABLET PO SCH ×2 (09:05→22:00)
[2020-10-06] MEDS: GABAPENTIN 100 MG CAPSULE PO SCH ×3 (09:06→21:59)
[2020-10-06] MEDS: INSULIN GLARGINE 100 UNITS/ML, PEN SQ-INSULIN SCH ×2 (09:09→21:59)
[2020-10-06] MEDS: OXYcodone IR 5MG TABLET PO PRN (10:20)
[2020-10-06 12:40] VITALS: BP 119/74
[2020-10-06 19:02] VITALS: BP 112/73
[2020-10-07 00:58] VITALS: BP 115/72
[2020-10-07] MEDS: NICOTINE 21 MG/24 HR PATCH.TD24 TD SCH (04:28)
[2020-10-07 06:52] VITALS: BP 127/85
[2020-10-07] MEDS: GABAPENTIN 100 MG CAPSULE PO SCH ×3 (07:52→20:57)
[2020-10-07] MEDS: SENNOSIDES 8.6 MG TABLET PO SCH ×2 (07:52→20:58)
[2020-10-07] MEDS: metFORMIN 850 MG TABLET PO SCH ×3 (07:52→20:57)
[2020-10-07] MEDS: INSULIN GLARGINE 100 UNITS/ML, PEN SQ-INSULIN SCH ×2 (07:57→21:07)
[2020-10-07 13:44] VITALS: BP 127/78
[2020-10-07 18:49] VITALS: BP 129/80
[2020-10-08 02:55] VITALS: BP 129/84
[2020-10-08] MEDS: NICOTINE 21 MG/24 HR PATCH.TD24 TD SCH (05:00)
[2020-10-08 07:06] VITALS: BP 129/84
[2020-10-08] MEDS: SENNOSIDES 8.6 MG TABLET PO SCH ×2 (09:19→20:28)
[2020-10-08] MEDS: metFORMIN 850 MG TABLET PO SCH ×3 (09:19→16:49)
[2020-10-08] MEDS: INSULIN GLARGINE 100 UNITS/ML, PEN SQ-INSULIN SCH ×2 (09:19→20:29)
[2020-10-08] MEDS: GABAPENTIN 100 MG CAPSULE PO SCH ×3 (09:19→20:28)
[2020-10-08] MEDS: OXYcodone IR 5MG TABLET PO PRN ×2 (12:35→21:09)
[2020-10-08 13:36] VITALS: BP 124/86
[2020-10-08 18:47] VITALS: BP 111/75
[2020-10-09 00:49] VITALS: BP 120/81
[2020-10-09] MEDS: NICOTINE 21 MG/24 HR PATCH.TD24 TD SCH (05:00)
[2020-10-09 07:15] VITALS: BP 128/86
[2020-10-09] MEDS: GABAPENTIN 100 MG CAPSULE PO SCH ×3 (08:46→20:42)
[2020-10-09] MEDS: SENNOSIDES 8.6 MG TABLET PO SCH ×2 (08:46→20:42)
[2020-10-09] MEDS: metFORMIN 850 MG TABLET PO SCH ×3 (08:46→17:07)
[2020-10-09] MEDS: INSULIN GLARGINE 100 UNITS/ML, PEN SQ-INSULIN SCH ×2 (08:47→20:43)
[2020-10-09] MEDS: OXYcodone IR 5MG TABLET PO PRN ×2 (11:34→22:06)
[2020-10-09 14:06] VITALS: BP 125/88
[2020-10-09 18:55] VITALS: BP 104/69
[2020-10-09] MEDS: LORazepam 1MG TABLET PO PRN (23:49)
[2020-10-10 00:57] VITALS: BP 105/70
[2020-10-10] MEDS: NICOTINE 21 MG/24 HR PATCH.TD24 TD SCH (04:26)
[2020-10-10 07:49] VITALS: BP 133/91
[2020-10-10] MEDS: SENNOSIDES 8.6 MG TABLET PO SCH ×2 (08:16→20:26)
[2020-10-10] MEDS: metFORMIN 850 MG TABLET PO SCH ×3 (08:16→16:27)
[2020-10-10] MEDS: GABAPENTIN 100 MG CAPSULE PO SCH ×3 (08:16→20:26)
[2020-10-10] MEDS: INSULIN GLARGINE 100 UNITS/ML, PEN SQ-INSULIN SCH ×2 (08:17→20:26)
[2020-10-10 12:16] VITALS: BP 115/74
[2020-10-10 18:32] VITALS: BP 109/71
[2020-10-10] MEDS ORDERED: TRAZODONE 100MG TABLET PO SCH (21:00)
[2020-10-11 00:08] VITALS: BP 141/83
[2020-10-11] MEDS: NICOTINE 21 MG/24 HR PATCH.TD24 TD SCH (04:06)
[2020-10-11 08:06] VITALS: BP 134/99
[2020-10-11] MEDS: GABAPENTIN 100 MG CAPSULE PO SCH ×3 (09:04→21:24)
[2020-10-11] MEDS: SENNOSIDES 8.6 MG TABLET PO SCH ×2 (09:04→21:23)
[2020-10-11] MEDS: metFORMIN 850 MG TABLET PO SCH ×3 (09:04→17:04)
[2020-10-11] MEDS: INSULIN GLARGINE 100 UNITS/ML, PEN SQ-INSULIN SCH ×2 (09:43→21:34)
[2020-10-11] MEDS: OXYcodone IR 5MG TABLET PO PRN (11:43)
[2020-10-11 15:23] VITALS: BP 139/90
[2020-10-11 19:22] VITALS: BP 133/77
[2020-10-11] MEDS ORDERED: TRAZODONE 100MG TABLET PO SCH (21:00)
[2020-10-12 00:23] VITALS: BP 129/72
[2020-10-12] MEDS: NICOTINE 21 MG/24 HR PATCH.TD24 TD SCH (05:00)
[2020-10-12 06:54] VITALS: BP 118/79
[2020-10-12] MEDS: GABAPENTIN 100 MG CAPSULE PO SCH ×3 (08:40→21:26)
[2020-10-12] MEDS: SENNOSIDES 8.6 MG TABLET PO SCH ×2 (08:40→21:26)
[2020-10-12] MEDS: metFORMIN 850 MG TABLET PO SCH ×3 (08:40→16:17)
[2020-10-12] MEDS: INSULIN GLARGINE 100 UNITS/ML, PEN SQ-INSULIN SCH ×2 (09:36→21:38)
[2020-10-12] MEDS: OXYcodone IR 5MG TABLET PO PRN (12:02)
[2020-10-12 12:12] VITALS: BP 133/81
[2020-10-12] MEDS ORDERED: TRAZODONE 100MG TABLET PO PRN (19:00)
[2020-10-12 21:10] VITALS: BP 136/80
[2020-10-12] MEDS: ACETAMINOPHEN 325 MG TABLET PO PRN (21:26)
[2020-10-13 03:11] VITALS: BP 122/80
[2020-10-13] MEDS: NICOTINE 21 MG/24 HR PATCH.TD24 TD SCH (04:57)
[2020-10-13 07:47] VITALS: BP 138/79
[2020-10-13] MEDS: SENNOSIDES 8.6 MG TABLET PO SCH (09:02)
[2020-10-13] MEDS: metFORMIN 850 MG TABLET PO SCH ×3 (09:02→17:34)
[2020-10-13] MEDS: GABAPENTIN 100 MG CAPSULE PO SCH ×2 (09:02→17:34)
[2020-10-13] MEDS: INSULIN GLARGINE 100 UNITS/ML, PEN SQ-INSULIN SCH (09:02)
[2020-10-13] MEDS: OXYcodone IR 5MG TABLET PO PRN ×2 (11:16→17:34)
[2020-10-13] MEDS ORDERED: METH-639 PO (11:53)
[2020-10-13] MEDS ORDERED: OXYC5TAB98 PO (11:53)
[2020-10-13] MEDS ORDERED: GABA-826 PO (11:53)
[2020-10-13 13:59] VITALS: BP 140/83
== END 2020-10-13 18:07 | disposition home or self-care (01) | DRG 304 ==
LOC: ED 20:11 → EDIP 20:43 → 3N 20:55 → 4NE 08-16 14:34 → 4WST 08-17 10:02 → 4NE 08-20 15:26 → 3N 09-11 15:33
PROVIDERS: ADMIT Internal Medicine; ATTEND Family Medicine
PROC: 00NX0ZZ Release Thoracic Spinal Cord, Open Approach (ICD-10-PCS; 2020-08-16)
PROC: 00NY0ZZ Release Lumbar Spinal Cord, Open Approach (ICD-10-PCS; 2020-08-16)
PROC: 0RB90ZZ Excision of Thoracic Vertebral Disc, Open Approach (ICD-10-PCS; 2020-08-16)
PROC: 0RG70K1 Fusion of 2 to 7 Thoracic Vertebral Joints with Nonautologous Tissue Substitute, Posterior Approach, Posterior Column, Open Approach (ICD-10-PCS; 2020-08-16)
PROC: 4A11X4G Monitoring of Peripheral Nervous Electrical Activity, Intraoperative, External Approach (ICD-10-PCS; 2020-08-16)
PROC: 0RG7071 Fusion of 2 to 7 Thoracic Vertebral Joints with Autologous Tissue Substitute, Posterior Approach, Posterior Column, Open Approach (ICD-10-PCS; principal; 2020-08-16 07:30)
DX: M51.05 Intervertebral disc disorders with myelopathy, thoracolumbar region (principal); M47.14 Other spondylosis with myelopathy, thoracic region; M47.15 Other spondylosis with myelopathy, thoracolumbar region; E66.01 Morbid (severe) obesity due to excess calories; M48.05 Spinal stenosis, thoracolumbar region; M41.9 Scoliosis, unspecified; Z68.43 Body mass index [BMI] 50.0-59.9, adult; I10 Essential (primary) hypertension; J98.11 Atelectasis; Z20.822 Contact with and (suspected) exposure to COVID-19; F32.9 Major depressive disorder, single episode, unspecified; F41.9 Anxiety disorder, unspecified; G89.29 Other chronic pain; F17.210 Nicotine dependence, cigarettes, uncomplicated; K59.03 Drug induced constipation; M51.04 Intervertebral disc disorders with myelopathy, thoracic region; G44.209 Tension-type headache, unspecified, not intractable; G47.00 Insomnia, unspecified; M51.16 Intervertebral disc disorders with radiculopathy, lumbar region; T40.2X5A Adverse effect of other opioids, initial encounter; Z74.01 Bed confinement status; Z79.899 Other long term (current) drug therapy; Y92.89 Other specified places as the place of occurrence of the external cause
CPT/HCPCS: 36415; 71045; 72072; 72110; 72128; 72131; 72146; 72148; 72157; 72158; 80048; 80053; 80061; 81001; 82962; 83036; 83605; 83735; 84100; 84145; 84443; 85025; 85379; 87040; 87070; 87077; 87086; 87186; 87205; 87635; 95938; 95941; 96374; 96375; 96376; 99285; C1713; G0378; J0171; J0690; J0696; J1100; J1170; J1650; J2250; J2270; J2405; J2543; J2704; J2710; J3010; J3360; J7509; A9575; C1762; J0330; J0360; J1030; J1815; J2765; J2800; J7030; J7040